=== PATIENT | female | born 1930 | race Caucasian/White ===

== ENCOUNTER 2017-05-27 10:52 | Emergency (ER) | payer MEDICARE, BC ==
[~2017-05-27] VITALS: Ht 157.5 cm; Wt 93.0 kg
[~2017-05-27 10:52] MED LIST: ASPIRIN EC325 MG PO; CALCIUM + VITA1 EACH PO; CENTRUM SILVER1 EAC1 PO; DORZOLAMIDE-TIM10 ML OP; FLEXERIL5 MG PO; INDOMETHACIN25 MG PO; KAON-CL 1010 MEQ PO; LASIX40 MG PO; LIPITOR20 MG PO; METOPROLOL SUCC50 MG PO; NITROGLYCERIN0.4 MG SL; NORCO 5-325 TA1 EACH PO; PREDNISONE5 MG PO; PRILOSEC20 MG PO; TYLENOL325 MG PO; XALATAN2.5 ML OU; XARELTO20 MG PO
== END 2017-05-27 11:27 | disposition home or self-care (01) ==
LOC: ED 10:52
DX: M79.605 Pain in left leg (principal); Z00.8 Encounter for other general examination

== ENCOUNTER 2017-07-23 12:41 | Emergency (ER) | payer MEDICARE, BC ==
[~2017-07-23] VITALS: Ht 157.5 cm; Wt 93.0 kg
[2017-07-23] MEDS ORDERED: PREDNISONE10 MG PO (15:12)
[2017-07-23] MEDS ORDERED: ZITHROMAX250 MG PO (15:12)
[2017-07-23] MEDS ORDERED: DIFLUCAN150 MG PO (15:17)
--- NOTE | 2017-07-23 22:26 | EKG ---
[facility] [address] [facility] [place] [address] Signed Normal sinus rhythm Septal infarct , age undetermined Abnormal ECG No previous ECGs available Confirmed by KIARA PANDEY MD ([id number]) on 07/23/2017 10:26:16 PM Electronically Signed By: KIARA PANDEY MD 07/23/17 2226 PATIENT NAME: PATRICIA JUNG Electrocardiogram DATE OF : 30 PHYSICIAN: KIARA PANDEY MD REPORT #: [id number] REPORT IS CONFIDENTIAL AND NOT TO BE RELEASED WITHOUT AUTHORIZATION
== END 2017-07-23 15:26 | disposition home or self-care (01) ==
LOC: ED 12:41
DX: J44.1 Chronic obstructive pulmonary disease with (acute) exacerbation (principal); I48.91 Unspecified atrial fibrillation; I11.0 Hypertensive heart disease with heart failure; I50.9 Heart failure, unspecified; E78.5 Hyperlipidemia, unspecified; K21.9 Gastro-esophageal reflux disease without esophagitis; Z88.2 Allergy status to sulfonamides; Z88.5 Allergy status to narcotic agent; Z79.899 Other long term (current) drug therapy; Z79.52 Long term (current) use of systemic steroids
CPT/HCPCS: 71020; 80053; 83880; 84484; 85025; 93005; 93010; 94640; 99283; J7512

== ENCOUNTER 2017-09-20 12:29 | Inpatient (IN) | payer MEDICARE, BC ==
[~2017-09-20] VITALS: Ht 157.5 cm; Wt 90.3 kg
[~2017-09-20 12:29] MED LIST changes: -CENTRUM SILVER1 EAC1 PO; +CENTRUM SILVER1 EAC3 PO; +DIFLUCAN150 MG PO; +PREDNISONE10 MG PO; +ZITHROMAX250 MG PO
[2017-09-20] MEDS ORDERED: POTASSIUM CHLO10 MEQ PO (12:50)
[2017-09-20] MEDS ORDERED: VENTOLIN HFA18 GM INH (17:09)
[2017-09-20] MEDS ORDERED: ALBUTEROL2.5 MG/3 M INH (17:11)
[2017-09-20] MEDS ORDERED: METOPROLOL SUC100 MG PO (17:13)
[2017-09-20] MEDS ORDERED: AZITHROMYCIN500 MG PO (18:17)
--- NOTE | 2017-09-20 18:20 | NUR ---
MED REC COMPLETE
--- NOTE | 2017-09-20 18:58 | NUR ---
PATIENT ADMIT FROM ED. TO FLOOR VIA STRETCHER. PATIENT TRANSFER TO HOSPITAL BED WITH NO DIFFICULTY. ADMISSION ASSESSMENT DONE. EXPIRATORY WHEEZE AUSCULTATED THROUGHOUT. PATIENT IS 1L O2 VIA NC. REPORTS SOB ON EXERTION. 1 PERSON [place] TO [facility] SITE PATENT. SKIN INTACT. PATIENT IS A&O. TELE # 8 SR. PATIENT EDUCATED ABOUT HOW TO USE TO CALL LIGHT. ALL PERSONAL BELONGING AND CALL LIGHT IN REACH.
--- NOTE | 2017-09-20 19:05 | NUR ---
SHIFT REPORT RECEIVED AT BEDSIDE. PATIENT UP AT THE BEDSIDE. JUST FINISHED A NEB TREATMENT. O2 SAT 94% ON 1L. PATIENT DOES NOT APPEAR SOB. ENCOURAGED HER TO RELAX AND DEEP BREATHE. DAUGHTER IN ROOM. NO OTHER NEEDS AT THIS TIME.
--- NOTE | 2017-09-20 20:09 | NUR ---
PATIENT UP TO BSC. STEADY ON HER FEET, BUT INCREASING SOB WITH ACTIVITY. 2L NC AND 94% O2 SAT. LUNGS ARE CLEAR IN UPPER LOBES WITH EXPIRTORY WHEEZE IN THE BASES. ABD IS SOFT, AND NONTENDER. BOWEL SOUNDS ACTIVE. EDEMA NOTED IN BOTH LOWER EXTREMITIES, 2+ IN THE LEFT & 3+ IN THE RIGHT. PATIENT HAS SOME TINGLING IN HER TOES. THEY ARE RED AND SWOLLEN, PATIENT STATES THIS IS FROM [place]. PATIENT'S DAUGHTER IS AT THE BEDSIDE. PATIENT'S BP WAS LOWER THAN PREVIOUS FINDINGS. WILL CALL
--- NOTE | 2017-09-20 20:14 | NUR ---
HOSPITALIST CONTACTED TO REPORT SYSOLIC BP LESS THAN 100, PER THE CALL PARAMETERS. ORDERS TO HOLD EVENING DOSE OF METOPROLOL.
--- NOTE | 2017-09-20 20:20 | NUR ---
VITALS DONE AND ENTERED. MARCE BEARD DID A MANUAL B/P TO BE SURE IT WAS RIGHT.
--- NOTE | 2017-09-20 20:30 | NUR ---
PATIENT'S DAUGHTER IS LEAVING FOR THE NIGHT. [facility] REPORTS BEING COMFORTABLE. LUIS ARMANDO HAS BEEN DRINKING WATER FREQUENTLY. EDUCATED PATIENT ON PROPER FLUID BALANCE WITH HER DX OF HEART FAILURE. PATIENT DENIES SHE HAS BEEN DRINKING MUCH AT ALL. RN EDUCATED HER ABOUT THE I&O BOARD AND HER INTAKE FOR THE NIGHT. PATIENT AGREES TO TAKE SMALLER DRINKS.
--- NOTE | 2017-09-20 22:00 | NUR ---
DISCUSSED FLUID RESTRICTION AND DAILY WEIGHTS WITH HOSPITALIST. SHE ORDERED A 1500ML FLUID RESTRICTION AND DAILY STANDING WEIGHTS.
--- NOTE | 2017-09-20 23:30 | NUR ---
MEDS GIVEN PER ORDER. PATIENT IS RESTING IN THE RECLINER. SHE DID NOT AROUSE AT ALL WHILE THE RN WAS IN THE ROOM. RR 18. O2 SAT 97% ON 2L NC. CALL LIGHT IN REACH.
--- NOTE | 2017-09-20 23:55 | NUR ---
VITALS AND I&OS DONE CHARTED. HELPED HER TO THE BATHROOM AND BACK. BEDSIDE TABLE AND CALL LIGHT WITHIN REACH. PT NEEDS NOTHING MORE AT THIS TIME.
--- NOTE | 2017-09-21 01:30 | NUR ---
PATIENT RESTING IN RECLINER. DOES NOT AROUSE DURING THE CADET DECK. LUNGS SOUND CLEAR, BREATHING IS SHALLOW. DIMINISHED IN THE BASES. EDEMA NOTED IN LOWER EXTREMITIES. PATIENT'S OUTPUT HAS BEEN QS. CONTINUES TO BE SOB WHEN GETTING UP TO BSC. PATIENT IS TOLERATING 2L NC.
--- NOTE | 2017-09-21 01:40 | NUR ---
VITALS AND I&OS DONE AND CHARTED. HELPED PT TO THE BEDSIDE COMMODE AND BACK TO HER CHAIR. PT STATED SHE DID NOT WANT TO SLEEP IN HER BED. BEDSIDE TABLE AND CALL LIGHT IN REACH. PT NEEDS NOTHING MORE AT THIS TIME.
--- NOTE | 2017-09-21 03:45 | NUR ---
PATIENT RESTING IN RECLINER. EYES CLOSED. RR18. O2 SAT 95% ON 2L NC.
--- NOTE | 2017-09-21 05:15 | NUR ---
SOCIAL SERVICE MANAGER COMPLETED PATIENT'S VS. SHE REQUESTED RT BE CONTACTED. RT PROVIDED NEB TREATMENT.
--- NOTE | 2017-09-21 05:29 | NUR ---
PATIENT SLEPT SOUNDLY MOST OF THE NIGHT. CONTINUES TO BE SOB WITH ACTIVITY. ONLY UP TO BSC. 2L NC AND SCHEDULED NEBS. PATIENT HAS EXPIRTORY WHEEZES IN THE BASES AND CLEAR IN UPPER LOBES BILATERALLY. EDEMA NOTED IN LOWER ETREMITIES, 2+ ON LEFT AND 3+ ON RIGHT. PATIENT ON 1500ML FLUID RESTRICTION, THIS IS NEW TO THE PATIENT AND SHE REQUIRES FURTHER EDUCATION. DAILY WT.
--- NOTE | 2017-09-21 05:49 | NUR ---
PATIENT AWAKE THIS MORNING. STATES SHE WAS UP EVERY HOUR LAST NIGHT, BUT STILL GOOD A DECENT AMOUNT OF SLEEP. PATIENT EDUCATED ON FLUID RESTRICTION. UPDATED ON PLAN OF CARE. PATIENT DISAGREES THAT SHE REQUIRED A FLUID RESTRICTION OR THAT SHE IS FLUID OVERLOADED. PATIENT PROVIDED WITH MORE EDUCATION AND THIS RN WILL PASS ON CONCERNS TO THE DAYSHIFT RN.
--- NOTE | 2017-09-21 06:20 | NUR ---
MORNING MEDS GIVEN. MORE EDUCATION PROVIDED ABOUT FLUID BALANCE, COPD, CHF, AND MEDS GIVEN. PATIENT IS IN A GOOD MOOD AND PROVIDED HER BREAKFAST ORDER. SHE CONTINUES TO BE ON 2L NC, 95% O2 SAT. EXPIRTORY WHEEZE THROUGHOUT. PATIENT DENIES OTHER NEEDS.
--- NOTE | 2017-09-21 07:10 | EKG ---
[facility] [address] [facility] [place], [place] [address] Signed Normal sinus rhythm Left axis deviation Septal infarct (cited on or before 23-JUL-2017) Abnormal ECG When compared with ECG of 23-JUL-2017 14:10, Questionable change in initial forces of Septal leads Confirmed by BAUTISTA SOLORZANO MD ([id number]) on 09/21/2017 7:10:31 AM Electronically Signed By: BAUTISTA SOLORZANO MD 09/21/17 0710 PATIENT NAME: PATRICIA JUNG Electrocardiogram DATE OF : 30 PHYSICIAN: BAUTISTA SOLORZANO MD REPORT #: [id number] REPORT IS CONFIDENTIAL AND NOT TO BE RELEASED WITHOUT AUTHORIZATION
--- NOTE | 2017-09-21 07:45 | NUR ---
BEDSIDE REPORT RECEIVED FROM CHIRAG. PATIENT AWAKE SITTING IN THE CHAIR, REPORT NO PAIN, NO NAUSEA, NO SOB. PATIENT IS ON 2L OF O2 VIA NC. SAT 95% AND HR 86 PER PULSE OXYMETER. WARM BLANKET GIVEN. NO APPARENT DISTRESS NOTED.CALL LIGHT IN REACH.
--- NOTE | 2017-09-21 08:23 | NUR ---
MACHINE ATTENDANT LA NENA IN ROOM TO TALK TO PATIENT.
--- NOTE | 2017-09-21 09:15 | NUR ---
SHIFT ASSESSMENT DONE. PATIEN REPORTS NO PAIN. LUNGS COARSE THROUGHOUT EXCEPT RIGHT UPPER LOBE WITH EXPERATORY WHEEZE. IV SITE PATENT. SKIN INTACT. PATIENT DENIES SOB AT THIS TIME. CALL LIGHT IN REACH. PATIENT SITTING IN CHAIR EATING BREAKFAST.
--- NOTE | 2017-09-21 10:30 | NUR ---
TECH IN ROOM DOING ECHO.
--- NOTE | 2017-09-21 12:05 | NUR ---
PATIENT WAS UP AMBULATED WITH PHYSICAL THERAPIST FROM ROOM 109 TO ROOM 111. TOLERATED FAIRLY, DESATED ON THE OF . PATIENT RESTING IN THE CHAIR AT THIS TIME EATING LUNCH. FAMILY IN ROOM VISITING.
--- NOTE | 2017-09-21 13:18 | NUR ---
PATIENT WAS ASSISTED TO BATHROOM , THEN BACK TO THE CHAIR. DENIES PAIN, REPORTS MILD SOB, PATIENT IS ON 2L OF O2. RESTING IN THE CHAIR AT THIS TIME. PO LASIX ADMINISTERED. WILL CONTINUE TO MONITOR
--- NOTE | 2017-09-21 15:14 | NUR ---
PT IS UP TO THE BATHROOM AND IS NOW BACK IN THE CHAIR. PT STATES SHE HAS NO OTHER NEEDS AT THIS TIME. CALL LIGHT IN REACH.
--- NOTE | 2017-09-21 15:54 | NUR ---
PATIENT CALLED AND REPORTED CHEST PRESSURE, HER FACE IS FLUSHES. DENIES ANY SOB OR PALPITATION. PATIENT HEART RATE IS 76 AND O2 SAT [address] DINAH SOLORZANO WAS NOTIFIED AND CAME IN TO ROOM TO ASSESS PATIENT. MD DISCUSS PATIENT ECHO TEST RESULT WITH PATIENT AND FAMILY. PATIENT RESTING IN THE CHAIR AT THIS TIME.
--- NOTE | 2017-09-21 18:38 | NUR ---
PATIENT HAD DONE WELL TODAY. WALKED FROM ROOM 109 TO ROOM 111 WITH 2L OF O2. TELE # 5 SR. EXPERATORY WHEEZE STILL AUSCULTATED THROUGHOUT THE LUNGS FIELD BUT IMPROVED AFTER NEB TX. IV SOLU-MEDROL. PO LASIX. PATIENT IS SBA TO BATHROOM AND VANESA WELL. SOB ON EXERTION.
--- NOTE | 2017-09-21 19:10 | NUR ---
SHIFT REPORT RECIEVED. PATIENT IN RECLINER READING THE PAPER. STATES SHE HAD A BETTER DAY TODAY. DENIES SHORTNESS OF BREATH. NO NEEDS AT THIS TIME. CALL LIGHT IN REACH. 2L NC IN USE. O2 SAT 95%.
--- NOTE | 2017-09-21 20:00 | NUR ---
PATIENT HAS FAMILY VISITING HER. DEINES ANY NEEDS AT THIS TIME. ZHENG NOVEMBER PROVIDED FRESH WATER.
--- NOTE | 2017-09-21 21:30 | NUR ---
EVENING MEDS GIVEN PER ORDER. PATIENT IS AAOX3. SITTING UP IN THE RECLINER. JUST FINIHSED A BREATHING TREATMENT WITH RT. PATIENT DENIES SOB. O2 SAT 97% ON 2L NC. PATIENT'S LUNGS HAVE A SLIGHTY EXPIRTORY WHEEZE THROUGHOUT. OCCATIONALY DRY COUGH. ABD IS ROUND, SOFT, AND NONTENDER. BOWEL SOUNDS ACTIVE. NYSTATIN POWER APPLIED UNDER PATIENT'S PANIS ON THE RIGHT AND LEFT SIDE. LEFT SIDE IS VERY RED AND PAINFUL, RIGHT SIDE IS ONLY SLIGHTLY RED AND NONPAINFUL. PATIENT IS 2+ EDEMA IN THE RIGHT LOWER EXTREMITY AND 1+ IN THE LEFT LOWER EXTREMITY. PATIENT HAS BEEN ELEVATING THEM WHILE SHE IS IN THE RECLINER. PATIENT ASSISTED UP TO THE BATHROOM AND THEN BACK TO BED. SHE IS STEADY ON HER FEET BUT BECOMES SOB WITH ACTIVTY. O2 SAT 90% WHEN RETURNED TO RECLINER. PATIENT HAS LONG NC TUBING TO WEAR O2 EVEN INTO THE BATHROOM. PATIENT DENIES OTHER NEEDS AT THIS TIME.
--- NOTE | 2017-09-21 21:58 | NUR ---
Charge nurse rounds - Pt up in chair, no c/o pain O2 inplace, pt visiting.
--- NOTE | 2017-09-21 22:44 | NUR ---
MARBLEIZING MACHINE TENDER ASSISTED PATIENT UP TO THE BATHROOM AND BACK TO THE RECLINER.
--- NOTE | 2017-09-22 00:50 | NUR ---
PATIENT RESTING IN RECLINER. O2 SAT 96% ON 2L NC. RR 18. CALL LIGHT IN REACH.
--- NOTE | 2017-09-22 01:23 | NUR ---
VITALS AND I&OS DONE AND CHARTED. FRESH WATER GIVEN. BEDSIDE TABLE AND CALL LIGHT WITHIN REACH. PT VISITING WITH FAMILY WHEN I LEFT THE ROOM.
--- NOTE | 2017-09-22 04:37 | NUR ---
PATIENT RESTED WELL THROUGHOUT THE NIGHT. AAOX3. 2L NC. SCHEDULED NEBS. SBA TO BATHROOM, SOB WITH ACTIVITY. CONTINUOUS PULSE OX. LUNG SOUNDS HAVE IMPROVED. PATIENT HAS SMALL BM. 1500 ML FLUID RESTRICTION. DAILY WT.
--- NOTE | 2017-09-22 06:31 | NUR ---
morning vs done. meds given per order. patienty resting in recliner. no needs at this time.
--- NOTE | 2017-09-22 07:09 | NUR ---
GOT DAILY WEIGHT
--- NOTE | 2017-09-22 07:25 | NUR ---
REPORT RECEIVED FROM MARCE BEARD. PT IS AWAKE AND UP IN CHAIR. CALL LIGHT IN REACH. BOARD CHANGED. PT DENIES OTHER NEEDS AT THIS TIME.
--- NOTE | 2017-09-22 08:24 | NUR ---
RT IN WITH PT. NEB ADMINISTERED. PT SITTING UP IN CHAIR EATING BREAKFAST. DENIES PAIN AND OTHER NEEDS AT THIS TIME.
--- NOTE | 2017-09-22 09:02 | NUR ---
PT UP TO BATHROOM. SBA. PT WALKS WELL, BUT SOB MAKES PT NERVOUS. CLEARED BREAKFAST TRAY. PT DENIES ANY PAIN, OR OTHER NEEDS AT THIS TIME. UP IN CHAIR WITH FEET UP. CALL LIGHT IN REACH.
--- NOTE | 2017-09-22 10:30 | NUR ---
PT QUALIFIED FOR HOME O2 WITH RT. DR SOLORZANO IN TO SEE PT. PT UP IN CHAIR. COUGHING PRODUCTIVELY. DAUGHTER IN ROOM VISITING WITH PATIENT.
--- NOTE | 2017-09-22 11:18 | NUR ---
PATIENT REFUSED SHOWER TODAY.
--- NOTE | 2017-09-22 11:42 | NUR ---
PT UP TO BATHROOM. REPORTS NO SOB WITH 2L O2. BACK TO CHAIR WITH FEET UP. DAUGHTER IN ROOM. DENIES OTHER NEEDS AT THIS TIME.
--- NOTE | 2017-09-22 12:46 | NUR ---
PT'S WATER CUP FILLED. UP IN CHAIR WITH FEET UP. PT IS PLEASANT AND DENIES ANY NEEDS AT THIS TIME. HAS VISITOR.
--- NOTE | 2017-09-22 13:49 | NUR ---
PT UP TO BATHROOM THEN BACK TO CHAIR. PT IS COUGHING PRODUCTIVELY. PT HAS FAMILY IN ROOM. DENIES ANY NEEDS AT THIS TIME.
--- NOTE | 2017-09-22 15:34 | NUR ---
PT IS SITTING UP IN CHAIR WITH LEGS ELEVATED. APPEARS COMFORTABLE. VISITING WITH FAMILY.
--- NOTE | 2017-09-22 17:22 | NUR ---
PT IS SITTING UP IN CHAIR WITH LEGS ELEVATED EATING DINNER. REPORTS MINOR HEADACHE, BUT DOESN'T WANT ANY COMFORT MEASURES. TELE BATTERY CHANGED. DENIES OTHER NEEDS. VISITING WITH FAMILY.
--- NOTE | 2017-09-22 18:04 | NUR ---
PT QUALIFIED FOR HOME O2 TODAY. MAINTAINS 93-96% WITH 2L. SBA. SL IN RIGHT FOREARM. EDEMA IN BLE. BASELINE EXPIRATORY WHEEZES. TELE DC'D THIS EVENING. NYSTATIN APPLIED UNDER PANUS. NO REDNESS ON RIGHT SIDE, SMALL RED AREA ON LEFT SIDE. MUTLIPLE BM'S TODAY. NO PAIN OR SOB. PLAN IS TO DC TO HOME TOMORROW.
--- NOTE | 2017-09-22 19:10 | NUR ---
SHIFT REPORT RECIEVED AT BEDSIDE. PATIENT RESTING IN RECLINER. 2L NC, O2 SAT 95%. NO NEEDS AT THIS TIME. STATED SHE HAD A GOOD DAY. CALL LIGHT IN REACH.
--- NOTE | 2017-09-22 21:00 | NUR ---
EVENING MEDS GIVEN PER ORDER. PATIENT RESTING IN RECLINER. O2 SAT 96% ON 2L NC. LUNGS ARE CLEAR IN UPPER LOBES AND COARSE IN THE BASES. OCCATIONAL PRODUCTIVE COUGH. ABD IS SOFT AND NONTEDER. APPETITE HAS IMPROVED. EDEMA NOTED IN LOWER EXTREMITIES BILATERALLY, MORE SO IN THE LEFT LEG. SKIN IS GROSSLY INTACT. PATIENT DENIES ANY NEEDS.
--- NOTE | 2017-09-22 23:15 | NUR ---
PATIENT RESTING IN BED. EYES CLOSED. RR 18. O2 SAT 95% ON 2L NC.
--- NOTE | 2017-09-23 00:30 | NUR ---
PATIENT PRESSED CALL LIGHT BY ACCIDENT AND ZHENG JOSEPH WENT INTO TALK WITH PATIENT. SHE DENIES ANY NEEDS.
--- NOTE | 2017-09-23 00:37 | NUR ---
PATIENT CALLED TO USE THE BATHROOM AND BACK TO CHAIR 1 PERSON ASSIST. CALL BUTTON WITHIN REACH.
--- NOTE | 2017-09-23 02:00 | NUR ---
PATIENT SLEEPING SOUNDLY. RR 18. O2 SAT 96%. BREATHING IS NONLABORED. CALL LIGHT IN REACH.
--- NOTE | 2017-09-23 03:55 | NUR ---
PATIENT RESTING IN RECLINER. APPEARS TO BE SLEEPING. RR19. O2 SAT 95% ON 2L.
--- NOTE | 2017-09-23 04:09 | NUR ---
ASSISTED PATIENT TO THE BATHROOM. WARM BLANKET PROVIDED. BACK TO RECLINER. NO OTHER NEEDS.
--- NOTE | 2017-09-23 05:52 | NUR ---
PATIENT SLEPT IN RECLINER THROUGHOUT THE NIGHT. SHE WAS UP TO THE BATHROOM A FEW TIMES AND CALLED APPROPRIATELY. SBA TO BATHROOM. SOB WITH ACTIVITY. OCCATIONAL COUGH. 2L NC. PULSE OX. 1500ML FLUID RESTRICTION. IV SL.
--- NOTE | 2017-09-23 06:05 | NUR ---
MORNING MEDS GIVEN. IV IS SENSITIVE TO FLUSH BUT DRAWS BACK BLOOD AND APPEARS WNL. PATIENT UP TO THE BATHROOM AND FOR HER DAILY WT. FRESH WATER PROVIDED. PATIENT IN RECLINER. DENIES OTHER NEEDS.
--- NOTE | 2017-09-23 07:20 | NUR ---
REPORT RECEIVED FROM MARCE BEARD. PT SITTING UP IN CHAIR. PLAN TO DC TODAY. DENIES OTHER NEEDS AT THIS TIME.
--- NOTE | 2017-09-23 07:45 | NUR ---
AM MEDS ADMINISTERED PER ORDER. PT IS SITTING UP IN CHAIR. HAS PAIN 5/10 IN HEAD, BUT STATES THAT IT IS OK. DENIED ANY COMFORT MEASURES. RT IN TO ADMINISTER SCHEDULED NEB. PT REPORTS SOME APPREHENSION ABOUT GOING HOME TODAY DUE TO LIVING INDEPENDENTLY. PROVIDED EDUCATION AND REASSURANCE.
--- NOTE | 2017-09-23 07:52 | NUR ---
PATIENT UP, WAITING FOR BREAKFAST, AM CARE DONE.
--- NOTE | 2017-09-23 10:03 | NUR ---
PT SITTING UP IN CHAIR WITH LEGS ELEVATED. DAUGHTER IN ROOM VISITING WITH PT. PT APPEARS COMFORTABLE. PT HAS BEEN UP TO WALK WITH PHYSICAL THERAPY X1. DR PANDEY IN TO SEE PT AND DISCUSS DC PLAN.
--- NOTE | 2017-09-23 10:45 | NUR ---
PT UP TO BATHROOM. USING FWW PER PHYSICAL THERAPY IN CASE OF SOB. PT HAS STEADY GAIT. DENIES OTHER NEEDS AT THIS TIME. PLAN TO CONTINUE ACTIVITY AD PRINCE. REASSESS PROGRESS AND DC TOMORROW.
--- NOTE | 2017-09-23 12:12 | NUR ---
PT SITTING UP IN CHAIR EATING LUNCH. VISITING WITH FAMILY. DENIES SOB AND HEADACHE HAS RESOLVED. STILL HAS OCCASSIONAL COUGH. NO OTHER NEEDS AT THIS TIME.
--- NOTE | 2017-09-23 13:55 | NUR ---
PT SITTING UP IN CHAIR WITH LEGS UP. HAS BEEN CALLING APPROPRIATELY AND UP TO BATHROOM REGULARLY. DENIES SOB OR DIZZINESS. VISITING WITH FAMILY IN ROOM. DENIES OTHER NEEDS AT THIS TIME.
--- NOTE | 2017-09-23 14:25 | NUR ---
SOLUMEDROL ADMINISTERED. PT TOLERATED WELL. MINOR DISCOMFORT. IV FLAVIA BLOOD AND FLUSHED WELL. PT UP TO BATHROOM, SBA. TOLERATED WELL. DINNER ORDERED. EDUCATION ON CARDIAC DIET PROVIDED. PT HAS LEGS ELEVATED. DENIES OTHER NEEDS AT THIS TIME.
--- NOTE | 2017-09-23 15:13 | NUR ---
PT UP TO WALK IN HALLWAY WITH MARCE CHIU. TOLERATED WELL ON 2L O2. PT BACK TO CHAIR WITH LEGS ELEVATED. VISITORS IN ROOM.
--- NOTE | 2017-09-23 18:28 | NUR ---
PT HAD SCHEDULED NEBS. WORKED WITH PHYSICAL THERAPY X1. IS TO USE FWW IN HALLWAY IN CASE OF SOB. UP IN HALLWAY X1 LAP. TOLERATED WELL WITH 2L NC. IS SBA IN ROOM. 2L NC. FLUID RESTRICTION REMOVED. CARDIAC DIET. REINFORCE EDUCATION. PT UP IN CHAIR MOST OF DAY WITH FEET ELEVATED. BASELINE EXW. WILL NEED TO REQUALIFY FOR HOME 02 TOMORROW BEFORE DC TO HOME. LIVES INDEPENDENTLY. WILL TRANSITION TO [place] TOMORROW. NEEDS REASSURANCE AND REINFORCEMENT OF EDUCATION/DC PLAN.
--- NOTE | 2017-09-23 19:15 | NUR ---
SHIFT REPORT RECIEVED. PATIENT RESTING IN RECLINER. DENIES NEEDS AT THIS TIME. 2L NC IN USE. O2 SAT 96%. CALL LIGHT IN REACH.
[2017-09-23] MEDS ORDERED: PREDNISONE5 MG PO (20:17)
[2017-09-23] MEDS ORDERED: PREDNISONE20 MG PO (20:18)
--- NOTE | 2017-09-23 21:15 | NUR ---
EVENING MEDS GIVEN PER ORDER. PATIENT UP TO THE BATHROOM. APPEARS STEADY ON HER FEET. SLIGHTLY SOB WHEN RETURNING TO THE RECLINER. LUNGS ARE COARSE IN THE BASES, CLEAR IN THE UPPER LOBES BILATERALLY. 2L NC, O2 SAT 95%. EDEMA NOTED IN LOWER EXTREMITIES, 2+ IN THE RIGHT AND +1 IN THE LEFT. NO PAIN. APPETITE IMPROVING. DENIES ANY NEEDS AT THIS TIME. CALL LIGHT IN REACH.
--- NOTE | 2017-09-23 23:30 | NUR ---
PATIENT RESTING IN THE RECLINER. APPEARS TO BE SLEEPING. RR16. O2 SAT 96% ON 2L NC.
--- NOTE | 2017-09-24 00:16 | NUR ---
PATIENT UP TO THE BATHROOM. ZHENG JOSEPH ASSISTED PATIENT. PATIENT REQUEST TO HAVE HER NEB TREATMENT. RT CONTACTED.
--- NOTE | 2017-09-24 02:24 | NUR ---
PATIENT APPEARS TO BE SLEEPING IN RECLINER. RR 17. O2 SAT 98%, 2L NC.
--- NOTE | 2017-09-24 03:32 | NUR ---
PATIENT CALLED TO USE THE BATHROOM. STANDBY ASSIST. PATIENT IS BACK IN CHAIR. CALL BUTTON WITHIN [facility]. CALLED RT FOR BREATHING TREATMENT PER PATIENT'S REQUEST.
--- NOTE | 2017-09-24 04:52 | NUR ---
PATIENT SLEPT WELL THROUGHOUT THE NIGHT. SBA TO THE BATHROOM. OUTPUT QS. NO PAIN. OCCATIONAL LOOSE COUGH. COARSE LUNG SOUNDS IN THE BASES, CLEAR IN THE UPPER LOBES BILATERALLY. EDEMA IN THE LOWER EXTREMITIES. 2L NC. NEEDS TO REQUALIFY FOR HOME O2 PRIOR TO DC.
--- NOTE | 2017-09-24 05:10 | NUR ---
PATIENT RESTING IN RECLINER. APPEARS TO BE SLEEPING. O2 SAT 96% ON 2L.
--- NOTE | 2017-09-24 09:02 | NUR ---
MORNING ASSESSMENT DONE. PT REPORTS "FEELING BETTER" TODAY. PT UP TO RESTROOM AND HAS A BM. 2L NC O2 ON. PT DEMONSTATES UNDERSTANDING OF O2 USE. PT BACK TO CHAIR WITHOUT INCIDENT. MD AT BEDSIDE FOR ROUNDS. PT VERBALIZES UNDERSTANDING OF PLAN OF CARE AND DISCHARGE TODAY. PT RESTING IN CHAIR. CALL LIGHT WITHIN REACH.
--- NOTE | 2017-09-24 09:15 | NUR ---
SPOKE WITH PATIENT AND DAUGHTER PREETHI IN ROOM. PATIENT IS AWARE SHE WILL PROBABLY NEED OXYGEN AT HOME. SHE ALSO IS AWARE DR PANDEY HAS WRITTEN FOR A WALKER. SHE IS STILL ADAMANT TO GO HOME AT DISCHARGE. STATES HER SON WILL BE STAYING WITH HER FOR A WEEK. HER DAUGHTER PREETHI STATES THEY WILL MAKE SURE SHE HAS SOMEONE AROUND. PATIENT STATES SHE HAS AN APPOINTMENT WITH DR GILBERT ON SUNDAY AND HAS A RIDE. SHE STATES SHE SPOKE WITH OUR CHW AND SHE IS GOING TO HELP HER FIND A NEW PCP FOR WHEN DR GILBERT RETIRES. BOTH STATE NO FURTHER QUESTIONS AND STATE UNDERSTANDING THAT [facility] THERAPY NEEDS TO DO AN OXYGEN QUALIFIER TEST THIS MORNING AND THAT I WILL SEND PAPERWORK TO [facility] FOR BOTH THE WALKER AND THE OXYGEN SET-UP.
--- NOTE | 2017-09-24 09:57 | NUR ---
PATIENT SITTING IN CHAIR VISITING WITH DAUGHTER. VITALS DONE, FRESH COFFEE GIVEN TO DAUGHTER. CALL LIGHT IN REACH, NO OTHER NEEDS AT THIS TIME.
--- NOTE | 2017-09-24 10:32 | NUR ---
PATIENT UP TO VOID, TOLERATED ACTIVITY WELL.
--- NOTE | 2017-09-24 10:47 | NUR ---
FAXED CLINICALS, RX FOR SEATED WALKER, RX FOR OXYGEN, AND OXYGEN QUALIFIER TO [facility]. FAX CONFIRMATION RECEIVED. CALLED [facility] AND SPOKE WITH SEVERO WHO WILL LOOK THROUGH PACKET.
--- NOTE | 2017-09-24 11:05 | NUR ---
Rec'd CHW referral at the end of the day Sunday09/21/17. made visit with patient who was looking for assisitance for a new PCP as her currently one Dr. Schwarz will be retiring this coming January. Let patient and family know I will research our local [place] area and let them know who is accepting new patient's with primary insurance as Medicare. Provided patient with current list of providers accepting new patient's and encourage them to not wait till the last minute as the [place] going [place] get tougher when Dr. Schwarz does retire. Once the patient decides who she would like as her new PCP I will get her an ARNEL so the choosen provider can review her medical records and accept/deny patient.
--- NOTE | 2017-09-24 11:17 | NUR ---
FOCUSED ASSESSMENT DONE. PT PLAYING CARDS WITH FAMILY. PT REPORTS FEELING "READY TO GO HOME ONCE MY SON ARRIVES." PT WEARING O2, 2L NC. MEDICATIONS GIVEN ORDEDED (SEE MAR). DISCHARGE INSTRUCTIONS REVIEWED WITH PT AND FAMILY. PT AND FAMILY VERBALIZE UNDERSTANDING OF INSTRUCTIONS AND STATE THEIR QUESTIONS HAVE BEEN ANSWERED. PT RESUMES CARD GAMES. NO REQUESTS OR COMPLAINTS AT THIS TIME. CALL LIGHT WITHIN REACH. RT AT BEDSIDE FOR NEB TREATMENT.
--- NOTE | 2017-09-24 12:00 | NUR ---
PATIENT UP TO BATHROOM WITH ONE PERSON ASSIT.
--- NOTE | 2017-09-24 14:16 | NUR ---
SPOKE WITH [facility]. THEY STATE THEY JUST SUBMITTED PAPERWORK TO INSURANCE. WILL CALL LATER WITH DETAILS.
--- NOTE | 2017-09-24 14:17 | NUR ---
SPOKE WITH KENN AT [facility]. SHE STATED THE RECONNAISSANCE MAN WAS BRINGING PATIENTS WALKER HERE, AND ONCE PATIENT LEAVES, TO CALL THEM AND HE WILL GO OUT TO PATIENTS HOME TO DELIVER OXYGEN SET-UP. UPDATED STAFF.
--- NOTE | 2017-09-24 14:20 | NUR ---
PATIENT HAS OXYGEN TO BE DELIVERED AT HOME AT 1530 OR SO.
[2017-09-25] MEDS ORDERED: NORCO 5-325 TA1 EACH PO (10:55)
--- NOTE | 2017-09-26 15:12 | NUR ---
09-26-17 Phone call to patient due to ED visit last night. 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 Amanda stated she does have a follow up appointment with Dr. Schwarz tomorrow 09/27/17. PCP notified of ED visit and Utilization letter sent to patient.
== END 2017-09-24 14:25 | disposition home or self-care (01) | DRG 190 ==
LOC: ED 12:29 → MS 16:46
PROVIDERS: ADMIT Internal Medicine
DX: J44.1 Chronic obstructive pulmonary disease with (acute) exacerbation (principal); J96.01 Acute respiratory failure with hypoxia; I48.0 Paroxysmal atrial fibrillation; Z77.22 Contact with and (suspected) exposure to environmental tobacco smoke (acute) (chronic); I11.0 Hypertensive heart disease with heart failure; I50.9 Heart failure, unspecified; Z53.29 Procedure and treatment not carried out because of patient's decision for other reasons
CPT/HCPCS: 36415; 71046; 80048; 80053; 81001; 83735; 83880; 84484; 85025; 93005; 93010; 93306; 94640; 94761; 94762; 97110; 97116; 97162; 97530; J2920; J7512

== ENCOUNTER 2017-09-25 07:42 | Emergency (ER) | payer MEDICARE, BC ==
[~2017-09-25] VITALS: Ht 157.5 cm; Wt 90.3 kg
[~2017-09-25 07:42] MED LIST changes: +ALBUTEROL2.5 MG/3 M INH; +AZITHROMYCIN500 MG PO; +METOPROLOL SUC100 MG PO; +POTASSIUM CHLO10 MEQ PO; +PREDNISONE20 MG PO; +VENTOLIN HFA18 GM INH
[2017-09-25] MEDS ORDERED: NORCO 5-325 TA1 EACH PO (10:55)
--- NOTE | 2017-09-26 22:42 | EKG ---
[facility] [address] [facility] [place] [address] Signed Atrial fibrillation Left axis deviation Septal infarct (cited on or before 23-JUL-2017) Abnormal ECG When compared with ECG of 20-SEP-2017 13:00, Atrial fibrillation has replaced Sinus rhythm Confirmed by KIARA PANDEY MD ([id number]) on 09/26/2017 10:41:49 PM Electronically Signed By: KIARA PANDEY MD 09/26/17 2242 PATIENT NAME: PATRICIA JUNG Electrocardiogram DATE OF : 30 PHYSICIAN: KIARA PANDEY MD REPORT #: [id number] REPORT IS CONFIDENTIAL AND NOT TO BE RELEASED WITHOUT AUTHORIZATION
== END 2017-09-25 11:42 | disposition home or self-care (01) ==
LOC: ED 07:42
DX: K85.90 Acute pancreatitis without necrosis or infection, unspecified (principal); I11.0 Hypertensive heart disease with heart failure; I50.9 Heart failure, unspecified; J44.9 Chronic obstructive pulmonary disease, unspecified; Z88.2 Allergy status to sulfonamides; Z88.5 Allergy status to narcotic agent; Z79.899 Other long term (current) drug therapy
CPT/HCPCS: 71045; 74160; 80053; 83690; 84484; 85025; 85610; 85730; 93005; 93010; 96374; 96375; 99284; J2270; J2405; J7120; Q9967

== ENCOUNTER 2019-08-05 02:03 | Emergency (ER) | payer MEDICARE, BC ==
[~2019-08-05] VITALS: Ht 157.5 cm; Wt 90.3 kg
--- OUTSIDE RECORDS SUMMARY | ~2019-08-05 | XMS | Encounter Summary ---
Demographics + + + | Address | [address] | | | [place] [address] | + + + | Home Phone | | + + + | Preferred Language | Unknown | + + + | Marital Status | Unknown | + + + | Moravian Affiliation | Unknown | + + + | Race | Unknown | + + + | Ethnic Group | Unknown | + + + Author + + + | Author | [facility] | | | and [place]ana | + + + | Organization | [facility] | | | and Morganana | + + + | Address | Unknown | + + + | Phone | Unavailable | + + + Support + + + + + | Name | Relationship | Address | Phone | + + + + + | Lobito Romero | LESA | [address] | | | | | [place], [place] | | | | | [address] | | + + + + + | Monie Conrad | ECON | Unknown | | | [place] | | | | + + + + + | Peggy Devi | LESA | Unknown | | + + + + + Care Team Providers + +------+ + | Care Cattyman Name | Role | Phone | + [...] Provider Unknown | | | | | [facility] [place] | [phone] | | | | | [address] | | | | | | [phone] | | | +--------+ + + + [...] Description | +--------+---------+ + + + | 12/02/ | Office | Cardiology | Monserrat Renner, | | | 2019 | Visit | | MD Bandar ALMODOVAR | | | | | | [place] | | | | | | [address] | | | | | | | | +--------+---------+ + + + documented as of this encounter Visit Diagnoses Not on filedocumented in this encounter"
--- OUTSIDE RECORDS SUMMARY | ~2019-08-05 | XMS | Encounter Summary ---
Demographics + + + | Address | [address] | | | [place] [address] | + + + | Home Phone | | + + + | Preferred Language | Unknown | + + + | Marital Status | Unknown | + + + | Restoration Affiliation | Unknown | + + + | Race | Unknown | + + + | Ethnic Group | Unknown | + + + Author + + + | Author | [facility] | | | and [place] | + + + | Organization | [facility] | | | and [place]ana | + + + | Address | Unknown | + + + | Phone | Unavailable | + + + Support + + + + + | Name | Relationship | Address | Phone | + + + + + | Lobito Romero | LESA | [address] | | | | | [place], [place] | | | | | [address] | | + + + + + | Monie Conrad | ECON | Unknown | | | [place] | | | | + + + + + | Peggy Devi | LESA | Unknown | | + + + + + Care Team Providers + +------+ + | Care Golf Course Laborer Name | Role | Phone | + [...] | | | | [address] | [place], [place] | | | | | [place], [place] | [address] | | | | | [address] | | | | | | [phone] | | | +--------+ + + + [...] | | | | | [place] | | | | | | [address] | | | | | | | [...] | maxP.54 mmHg TR Vmax: 2.57 m/s Svp Digital [employer]: | | | Authenticated by: Monserrat [facility] Report Date/Time: 09-21-2017 | | | 13:4:10 | | + + + + + | Procedure Note | + + | Harlan Wallace Conversion - 03/27/2019 3:56 PM PDT Patient Name: Tin Romero of | | : 1930 Performing Physician: Monserrat | | Prudencered wing INDICATIONS------ | | -----CHF, A-fib, SOB, Edema [...] cmLVIDd: 4.83 cmLVPWd: 0.88 cmLVOT Area: 3.37 [id number] Diam: 2.07 cm%FS: 29.10 | | %EF(Teich): [...] (A-L): 15.14 ml/m2LAAs A2C: | | 12.79 [id number] A-L A2C: 25.65 mlLALs A2C: 5.41 cmLAAs A4C: 14.08 pd6CKSIO A-L A4C: | | 32.16 mlLALs A4C: 5.23 cmRAAs: 18.88 pg0BXQNV A-L: 62.79 mlRAESV MOD: 59.55 | | mlRALs: 4.82 cmTAPSE: 2.35 cmAV maxP.72 mmHgAV meanP.16 mmHgAV Vmax: | | 1.91 m/Julius Vmean: 1.31 m/Julius VTI: 40.90 cmAVA Vmax: 1.85 cm2AVA (VTI): 1.85 | | uv6AJDZ Vmax: 0.00 cm2/m2AVAI (VTI): 0.00 cm2/m2LVOT maxP.43 mmHgLVOT meanPG: | | 2.50 mmHgLVSI Dopp: 39.26 ml/m2LVSV Dopp: 75.78 mlLVOT Vmax: 1.05 m/sLVOT Vmean: | | 0.74 m/sLVOT VTI: 22.43 cmMV A Jayden: 1.04 m/sMV DecT: 271.59 msMV E Jayden: 0.86 | | m/sMV E/A Ratio: 0.82MV PHT: 78.76 msMVA By PHT: 2.79 os1Nhhadj e': 0.05 | | m/sSeptal E/e': 14.66Lateral e': 0.04 m/sLateral E/e': 17.85RAP: 5 mmHgRVSP: | | 31.54 mmHgTR maxP.54 mmHgTR Vmax: 2.57 m/s Svp Digital Ad Sales:Authenticated by: | | Monserrat [facility] Date/Time: 09-21-2017 13:4:10 IMPRESSION: 1. [...] |TR Vmax: 2.57 m/s | | | |Svp Digital [employer]: | |Authenticated by: Liseleatha García | |Report [...]
--- OUTSIDE RECORDS SUMMARY | ~2019-08-05 | XMS | Encounter Summary ---
Demographics + + + | Address | [address] | | | [place] [address] | + + + | Home Phone | | + + + | Preferred Language | Unknown | + + + | Marital Status | Unknown | + + + | Pentecostalism Affiliation | Unknown | + + + | Race | Unknown | + + + | Ethnic Group | Unknown | + + + Author + + + | Author | [facility] | | | and [place] | + + + | Organization | [facility] | | | and [place] | + + + | Address | Unknown | + + + | Phone | Unavailable | + + + Support + + + + + | Name | Relationship | Address | Phone | + + + + + | Lobito Romero | LESA | [address] | | | | | [place], [place] | | | | | [address] | | + + + + + | Monie Conrad | ECON | Unknown | | | [place] | | | | + + + + + | Peggy Devi | LESA | Unknown | | + + + + + Care Team Providers + +------+ + | Care Buffer Operator Name | Role | Phone | + [...] + + | 04/09/ | Office | [facility] | Monserrat Perez, | Chronic diastolic | | 2019 | Visit | CARDIOLOGY DEON | MD Bandar ALMODOVAR | heart failure (HCC) | | | | [address] | [place], [place] | (Primary Dx); | | | | [place] [address] | [id number] | Essential | | | | [place] | | hypertension; | | | | [address] | | Paroxysmal atrial | | | | [phone] | | fibrillation (HCC) | +--------+---------+ + [...] No change in medication. Was evaluated in [facility] in November 2018 for shortness of breath, [...] pickled vegetables Previously was hospitalized in [facility] in September 2017 secondary to exacerbat [...] change from previous EKG. 09/20/2017 From [facility] showed normal sinus rhythm, left axis [...] 12/02/ | Office | Cardiology | Monserrat Perez, | | | 2019 | Visit | | MD Bandar ALMODOVAR | | | | | | [place], [place] | | | | | | [address] | | | | | | | [...]
--- OUTSIDE RECORDS SUMMARY | ~2019-08-05 | XMS | Encounter Summary ---
Demographics + + + | Address | [address] | | | [place] [address] | + + + | Home Phone | | + + + | Preferred Language | Unknown | + + + | Marital Status | Unknown | + + + | Rastafari Affiliation | Unknown | + + + | Race | Unknown | + + + | Ethnic Group | Unknown | + + + Author + + + | Author | [facility] | | | and [place] | + + + | Organization | [facility] | | | and [place] | + + + | Address | Unknown | + + + | Phone | Unavailable | + + + Support + + + + + | Name | Relationship | Address | Phone | + + + + + | Lobito Romero | LESA | [address] | | | | | [place], [place] | | | | | [address] | | + + + + + | Monie Conrad | ECON | Unknown | | | [place] | | | | + + + + + | Peggy Devi | LESA | Unknown | | + + + + + Care Team Providers + +------+ + | Care Grain Elevator Man Name | Role | Phone | + +------+ + | Brooklyn Helms MD | PCP | | + +------+ + Encounter Details +--------+ + + + + | Date | Type | Department | Care Team | Description | +--------+ + + + + | 08/14/ | Orders Only | [facility] | Conversion | | | 2014 | | CONVERSION DEP [address] | Transaction, | | | | | [address] | Provider Unknown | | | | | [facility] [place] | [phone] | | | | | [address] | | | | | | [phone] | | | +--------+ + + + [...] [place] | | | | | | [address] | | | | | | | | +--------+---------+ + + + documented as of this encounter Visit Diagnoses Not on filedocumented in this encounter"
--- OUTSIDE RECORDS SUMMARY | ~2019-08-05 | XMS | Clinical Summary ---
Demographics + + + | Address | [address] | | | [place] [address] | + + + | Home Phone | | + + + | Preferred Language | Unknown | + + + | Marital Status | Unknown | + + + | Spiritism Affiliation | Unknown | + + + | Race | Unknown | + + + | Ethnic Group | Unknown | + + + Author + + + | Author | [facility] (Historical as of | | | 03-22-19) | + + + | Organization | [facility] (Historical as of | | | 03-22-19) | + + + | Address | Unknown | + + + | Phone | Unavailable | + + + Support + + + + + | Name | Relationship | Address | Phone | + + + + + | Lobito Jung | ECON | [address] | | | | | [place] | | | | | [address] | | + + + + + | Butch Mark | ECON | Unknown | | | Monie Clay | | | | + + + + + | Peggy Devi | ECON | Unknown | | + + + + + | Bibiana Raygoza | ECON | Unknown | | + + + + + Care Team Providers + +------+ + | Care Apn Name | Role | Phone | + +------+ + | Brooklyn Helms MD | PP | | + +------+ + Allergies + + + + + + | Active Allergy | Reactions | Severity | Noted | Comments | | | | | Date | | + + + + + + | Sulfur | Headache | Low | 08/08/19 | | | | | | 14 | | + + + + + + Current Medications + + +--------+---------+------+------+-------+ | Prescription | Sig. | Disp. | Refills | Star | End | Statu | | | | | | t | Date | s | | | | | | Date | | | + + +--------+---------+------+------+-------+ | Multiple | Take 1 tablet by | | | | | Activ | | Vitamins-Minerals | mouth daily. | | | | | e | | (CENTRUM SILVER PO) | | | | | | | + + +--------+---------+------+------+-------+ | nitroGLYCERIN | Place 0.4 mg under | | | | | Activ | | (NITROSTAT) 0.4 MG | the tongue every 5 | | | | | e | | SL tablet | (five) minutes as | | | | | | | | needed. Up to 3 tabs | | | | | | | | in 15 minutes, if | | | | | | | | no relief: call 911 | | | | | | | | or go to ER | | | | | | + + +--------+---------+------+------+-------+ | latanoprost | 1 drop nightly. | | | | | Activ | | (XALATAN) 0.005 % | | | | | | e | | ophthalmic solution | | | | | | | + + +--------+---------+------+------+-------+ | indomethacin | Take 50 mg by mouth | | | | | Activ | | (INDOCIN) 50 MG | 3 (three) times | | | | | e | | capsule | daily as needed. | | | | | | + + +--------+---------+------+------+-------+ | potassium citrate | Take 10 mEq by mouth | | | | | Activ | | (UROCIT-K) 10 MEQ | 2 (two) times | | | | | e | | (1080 MG) SR tablet | daily. | | | | | | + + +--------+---------+------+------+-------+ | calcium-vitamin D | Take 1 tablet by | | | | | Activ | | (OSCAL-500) 500-200 | mouth 2 (two) times | | | | | e | | MG-UNIT per tablet | daily. | | | | | | + + +--------+---------+------+------+-------+ | dorzolamide | Place 1 drop into | | | | | Activ | | (TRUSOPT) 2 % | both eyes 3 (three) | | | | | e | | ophthalmic solution | times daily. | | | | | | + + +--------+---------+------+------+-------+ | | Take 1 tablet by | | | | | Activ | | HYDROcodone-acetamin | mouth every 6 (six) | | | | | e | | ophen (NORCO) 5-325 | hours as needed. | | | | | | | MG per tablet | | | | | | | + + +--------+---------+------+------+-------+ | omeprazole | Take 20 mg by mouth | | | | | Activ | | (PRILOSEC) 20 MG | 2 (two) times daily. | | | | | e | | capsule | | | | | | | + + +--------+---------+------+------+-------+ | predniSONE | Take 5 mg by mouth | | | | | Activ | | (DELTASONE) 5 MG | daily with | | | | | e | | tablet | breakfast. | | | | | | + + +--------+---------+------+------+-------+ | rivaroxaban | Take 20 mg by mouth | | | | | Activ | | (XARELTO) 20 MG | daily with dinner. | | | | | e | | tablet | | | | | | | + + +--------+---------+------+------+-------+ | albuterol (PROAIR | Inhale 2 puffs into | | | | | Activ | | HFA) 108 (90 BASE) | the lungs every 4 | | | | | e | | MCG/ACT inhaler | (four) hours as | | | | | | | | needed. | | | | | | + + +--------+---------+------+------+-------+ | Respiratory | by Does not apply | | | | | Activ | | Therapy Supplies | route as needed. | | | | | e | | (NEBULIZER | | | | | | | | COMPRESSOR) KIT | | | | | | | + + +--------+---------+------+------+-------+ | metolazone | Take 1 tablet by | 30 | 2 | 03/2 | | Activ | | (ZAROXOLYN) 2.5 MG | mouth every other | tablet | | 08/25 | | e | | tablet | day. | | | 18 | | | + + +--------+---------+------+------+-------+ | spironolactone | Take 25 mg by mouth | | | | | Activ | | (ALDACTONE) 25 MG | 2 (two) times daily. | | | | | e | | tablet | | | | | | | + + +--------+---------+------+------+-------+ | potassium chloride | Take 10 mEq by mouth | | | | | Activ | | (K-DUR) 10 MEQ | 2 (two) times daily | | | | | e | | tablet | with meals. | | | | | | + + +--------+---------+------+------+-------+ | metoprolol | Take 1 tablet by | 90 | | 03/1 | | Activ | | (TOPROL-XL) 25 MG 24 | mouth daily. | tablet | | 3/20 | | e | | hr tablet | | | | 19 | | | + + +--------+---------+------+------+-------+ | furosemide (LASIX) | Take 1 tablet by | | | 03/1 | | Activ | | 40 MG tablet | mouth 2 (two) times | | | 10/23 | | e | | | daily. | | | 19 | | | + + +--------+---------+------+------+-------+ Active Problems + + + | Problem | Noted Date | + + + | Chronic diastolic heart failure (HCC) | 10/24/2017 | + + + | Chronic respiratory failure with hypoxia (HCC) | 10/24/2017 | + + + | Hypertensive heart disease with CHF | 08/14/2013 | + + + + + | Last Assessment & Plan: HTN, controlled. 83-year-old white | | female with increasing shortness of breath. There is increasing | | edema, orthopnea PND. Despite this, no significant chest | | discomfort. His echocardiogram shows a decrease in her LV | | systolic function when compared to previous echo 2 years ago. | | Her furosemide is helping her symptoms. Will or crest nuclear | | perfusion study to assess for coronary disease as a cause or | | decompensated heart failure. Also request ultrasound of lower | | extremities to rule out DVT. | + + + + + | Essential hypertension | 08/08/2013 | + + + | Paroxysmal atrial fibrillation (HCC) | 08/08/2013 | + + + + + | Last Assessment & Plan: Paroxysmal atrial fibrillation, | | remains in sinus rhythm. Anticoagulation with aspirin 325 mg | | daily. | + + Resolved Problems + + + + | Problem | Noted | Resolved | | | Date | Date | + + + + | Chest pain, unspecified | 08/08/19 | | | | 14 | 9 | + + + + Family History + + +------+ + | Medical History | Relation | Name | Comments | + + +------+ + | Coronary art dis | Mother | | | + + +------+ + | Diabetes type II | Mother | | | + + +------+ + | Heart disease | Mother | | | + + +------+ + | High cholesterol | Mother | | | + + +------+ + | Hypertension | Mother | | | + + +------+ + + +------+ + + | Relation | Name | Status | Comments | + +------+ + + | Father | | | pneumonia | | | | (Age | | | | | 40) | | + +------+ + + | Mother | | | DMII,heart disease, Parkinsons Disease, | | | | (Age | Glaucoma,HTN | | | | 86) | | + +------+ + + Social History + +-------+ +--------+------+ [...] + +---------+ + | Alcohol Use | Drinks/We | oz/Week | Comments | | | ek | | | + + +---------+ + | No | | | | + + +---------+ + + + + | Sex Assigned at | Date Recorded | | | | + + + | Not on file | | + + + Last Filed Vital Signs + + + + | Vital Sign | Reading | Time Taken | + + + + | Blood Pressure | 128/62 | 10/16/2018 11:40 AM PDT | + + + + | Pulse | 80 | 10/16/2018 11:40 AM PDT | + + + + | Temperature | - | - | + + + + | Respiratory Rate | 18 | 10/16/2018 11:40 AM PDT | + + + + | Oxygen Saturation | 95% | 10/16/2018 11:40 AM PDT | + + + + | Inhaled Oxygen | - | - | | Concentration | | | + + + + | Weight | 90.7 kg (200 lb) | 10/16/2018 11:40 AM PDT | + + + + | Height | 154.9 cm (5' 1") | 10/16/2018 11:40 AM PDT | + + + + | Body Mass Index | 37.79 | 10/16/2018 11:40 AM PDT | + + + + Plan of Treatment + + + + + | Health Maintenance | Due Date | Last Done | Comments | + + + + + | Vaccine: | | | | | Dtap/Tdap/Td (1 - | 9 | | | | Tdap) | | | | + + + + + | Vaccine: Zoster (1 | | | | | of 2) | 0 | | | + + + + + | DEXA SCAN SCREENING | | | | | | 5 | | | + + + + + | Vaccine: | | | | | Pneumococcal 65+ | 5 | | | | Low/Medium Risk (1 | | | | | of 2 - PCV13) | | | | + + + + + | Vaccine: Influenza | | | | | (#1) | 9 | | | + + + + + Results Not on filefrom Last 3 Months Insurance + +--------+ +------+-------+ + | Payer | Benefi | Subscriber | Type | Phone | Address | | | t Plan | ID | | | | | | / | | | | | | | Group | | | | | + +--------+ +------+-------+ + | MEDICARE | MEDICA | [id number] | | | [address] | | | [place] | | | | [place] [address] | | | IP-OP | | | | | + +--------+ +------+-------+ + | PREMERA | PREMER | [id number] | | | [address] [address] | | | A BLUE | 1 | | | [place] | | | CARD | | | | [phone] | + +--------+ +------+-------+ + + +--------+ +--------+ + + | Guarantor Name | Accoun | Relation to | Date | Phone | Billing Address | | | t Type | Patient | of | | | | | | | | | | + +--------+ +--------+ + + | AMANDA JUNG V | Person | Self | [birth year] | Home: | [address] | | | al/Fam | | 1930 | [phone] [address] [place], [place] | | | [place] | | | [phone] | [address] | + +--------+ +--------+ + +
--- OUTSIDE RECORDS SUMMARY | ~2019-08-05 | XMS | Encounter Summary ---
Demographics + + + | Address | [address] | | | [place] [address] | + + + | Home Phone | | + + + | Preferred Language | Unknown | + + + | Marital Status | Unknown | + + + | Jehovah'S Witness Affiliation | Unknown | + + + | Race | Unknown | + + + | Ethnic Group | Unknown | + + + Author + + + | Author | [facility] | | | and [place] | + + + | Organization | [facility] | | | and [place] | + + + | Address | Unknown | + + + | Phone | Unavailable | + + + Support + + + + + | Name | Relationship | Address | Phone | + + + + + | Lobito Romero | LESA | [address] | | | | | [place], [place] | | | | | [address] | | + + + + + | Monie Conrad | ECON | Unknown | | | [place] | | | | + + + + + | Peggy Devi | LESA | Unknown | | + + + + + Care Team Providers + +------+ + | Care Transformer Mechanic Name | Role | Phone | + [...] | | | | [address] | [place], [place] | | | | | [place], [place] | [address] | | | | | [address] | | | | | | [phone] | | | +--------+ + + + [...] | | | | | [place] | | | | | | [address] | | | | | | | [...] | maxP.54 mmHg TR Vmax: 2.57 m/s Director Of Student Aid: | | | Authenticated by: Monserrat [facility] Report Date/Time: 09-21-2017 | | | 13:4:10 | | + + + + + | Procedure Note | + + | Harlan Wallace Conversion - 03/27/2019 3:56 PM PDT Patient Name: Tin Romero of | | : 1930 Performing Physician: Monserrat | | Prudencered rock INDICATIONS------ | | -----CHF, A-fib, SOB, Edema [...] cmLVIDd: 4.83 cmLVPWd: 0.88 cmLVOT Area: 3.37 cb5PKFN Diam: 2.07 cm%FS: 29.10 | | %EF(Teich): [...] (A-L): 15.14 ml/m2LAAs A2C: | | 12.79 fq1NXFVB A-L A2C: 25.65 mlLALs A2C: 5.41 cmLAAs A4C: 14.08 ax6COFSN A-L A4C: | | 32.16 mlLALs A4C: 5.23 cmRAAs: 18.88 xb6GYWSQ A-L: 62.79 mlRAESV MOD: 59.55 | | mlRALs: 4.82 cmTAPSE: 2.35 cmAV maxP.72 mmHgAV meanP.16 mmHgAV Vmax: | | 1.91 m/Julius Vmean: 1.31 m/Julius VTI: 40.90 cmAVA Vmax: 1.85 cm2AVA (VTI): 1.85 | | ng6NXLE Vmax: 0.00 cm2/m2AVAI (VTI): 0.00 cm2/m2LVOT maxP.43 mmHgLVOT meanPG: | | 2.50 mmHgLVSI Dopp: 39.26 ml/m2LVSV Dopp: 75.78 mlLVOT Vmax: 1.05 m/sLVOT Vmean: | | 0.74 m/sLVOT VTI: 22.43 cmMV A Jayden: 1.04 m/sMV DecT: 271.59 msMV E Jayden: 0.86 | | m/sMV E/A Ratio: 0.82MV PHT: 78.76 msMVA By PHT: 2.79 tj6Ipdjpp e': 0.05 | | m/sSeptal E/e': 14.66Lateral e': 0.04 m/sLateral E/e': 17.85RAP: 5 mmHgRVSP: | | 31.54 mmHgTR maxP.54 mmHgTR Vmax: 2.57 m/s Director Of Student Aid:Authenticated by: | | Monserrat [facility] Date/Time: 09-21-2017 13:4:10 IMPRESSION: 1. [...] |TR Vmax: 2.57 m/s | | | |Director Of Student Aid: | |Authenticated by: Liseleatha García | |Report [...]
--- OUTSIDE RECORDS SUMMARY | ~2019-08-05 | XMS | Encounter Summary ---
Demographics + + + | Address | [address] | | | [place] [address] | + + + | Home Phone | | + + + | Preferred Language | Unknown | + + + | Marital Status | Unknown | + + + | Zoroastrianism Affiliation | Unknown | + + + | Race | Unknown | + + + | Ethnic Group | Unknown | + + + Author + + + | Author | [facility] | | | and [place] | + + + | Organization | [facility] | | | and [place] | + + + | Address | Unknown | + + + | Phone | Unavailable | + + + Support + + + + + | Name | Relationship | Address | Phone | + + + + + | Lobito Romero | LESA | [address] | | | | | [place], [place] | | | | | [address] | | + + + + + | Monie Conrad | ECON | Unknown | | | [place] | | | | + + + + + | Peggy Devi | LESA | Unknown | | + + + + + Care Team Providers + +------+ + | Care Personal Banker Name | Role | Phone | + [...] Provider Unknown | | | | | [facility] [place] | [phone] | | | | | [address] | | | | | | [phone] | | | +--------+ + + + [...] [place] | | | | | | [address] | | | | | | | | +--------+---------+ + + + documented as of this encounter Visit Diagnoses Not on filedocumented in this encounter"
--- OUTSIDE RECORDS SUMMARY | ~2019-08-05 | XMS | Clinical Summary ---
Demographics + + + | Address | [address] | | | [place] [address] | + + + | Home Phone | | + + + | Preferred Language | Unknown | + + + | Marital Status | Unknown | + + + | Orthodoxy Affiliation | Unknown | + + + | Race | Unknown | + + + | Ethnic Group | Unknown | + + + Author + + + | Author | [facility] | | | and [place] | + + + | Organization | [facility] | | | and [place] | + + + | Address | Unknown | + + + | Phone | Unavailable | + + + Support + + + + + | Name | Relationship | Address | Phone | + + + + + | Lobito Romero | LESA | [address] | | | | | [place], [place] | | | | | [address] | | + + + + + | Monie Conrad | ECON | Unknown | | | [place] | | | | + + + + + | Peggy Devi | LESA | Unknown | | + + + + + Care Team Providers + +------+ + | Care Conveyancer Name | Role | Phone | + +------+ + | Brooklyn Helms MD | PCP | | + +------+ + Allergies + + + + + + | Active Allergy | Reactions | Severity | Noted | Comments | | | | | Date | | + + + + + + | Sulfur | Headache | Low | 08/08/19 | | | | | | 14 | | + + + + + + Medications + + + +---------+------+------+-------+ | Medication | Sig | Dispensed | Refills | Star | End | Statu | | | | | | t | Date | s | | | | | | Date | | | + + + +---------+------+------+-------+ | MULTIPLE | Take 1 tablet by | | 0 | 01/0 | | Activ | | VITAMINS-MINERALS PO | mouth daily. | | | 10/23 | | e | | | | | | 14 | | | + + + +---------+------+------+-------+ | nitroglycerin | Place 0.4 mg under | | 0 | 01/0 | | Activ | | (NITROSTAT) 0.4 mg | the tongue every 5 | | | 3/20 | | e | | SL tablet | (five) minutes as | | | 14 | | | | | needed. Up to 3 tabs | | | | | | | | in 15 minutes, if | | | | | | | | no relief: call 911 | | | | | | | | or go to ER | | | | | | + + + +---------+------+------+-------+ | potassium citrate | Take 10 mEq by mouth | | 0 | 01/0 | | Activ | | (UROCIT-K) 10 mEq SR | 2 (two) times | | | 3/20 | | e | | tablet | daily. | | | 14 | | | + + + +---------+------+------+-------+ | calcium-vitamin D | Take 1 tablet by | | 0 | 01/0 | | Activ | | (OYSTER SHELL | mouth 2 (two) times | | | 9/20 | | e | | CALCIUM/D) 500 | daily. | | | 14 | | | | mg-200 units per | | | | | | | | tablet | | | | | | | + + + +---------+------+------+-------+ | predniSONE | Take 5 mg by mouth | | 0 | 01/0 | | Activ | | (DELTASONE) 5 mg | daily with | | | 9/20 | | e | | tablet | breakfast. | | | 14 | | | + + + +---------+------+------+-------+ | rivaroxaban | Take 20 mg by mouth | | 0 | 01/0 | | Activ | | (XARELTO) 20 mg | daily with dinner. | | | 9/20 | | e | | tablet | | | | 14 | | | + + + +---------+------+------+-------+ | albuterol (PROAIR | Inhale 2 puffs into | | 0 | 01/0 | | Activ | | HFA) 90 mcg/puff | the lungs every 4 | | | 9/20 | | e | | inhaler | (four) hours as | | | 14 | | | | | needed. | | | | | | + + + +---------+------+------+-------+ | Respiratory | by Does not apply | | 0 | 03/2 | | Activ | | Therapy Supplies | route as needed. | | | 20 | | e | | (NEBULIZER | | | | 18 | | | | COMPRESSOR) KIT | | | | | | | + + + +---------+------+------+-------+ | spironolactone | Take 25 mg by mouth | | 0 | 06/2 | | Activ | | (ALDACTONE) 25 mg | 2 (two) times daily. | | | 02/22 | | e | | tablet | | | | 18 | | | + + + +---------+------+------+-------+ | metoprolol | Take 1 tablet by | 90 | 0 | 03/ | | Activ | | succinate | mouth daily. | tablet | | 20 | | e | | (TOPROL-XL) 25 mg 24 | | | | 19 | | | | hr tablet | | | | | | | + + + +---------+------+------+-------+ | furosemide (LASIX) | Take 1 tablet by | | 0 | 10/04 | | Activ | | 40 mg tablet | mouth 2 (two) times | | | 10/23 | | e | | | daily. | | | 19 | | | + + + +---------+------+------+-------+ Active Problems + + + | Problem | Noted Date | + + + | Chronic diastolic heart failure | 10/24/2017 | + + + | Chronic respiratory failure with hypoxia | 10/24/2017 | + + + | Hypertensive heart disease with CHF | 08/14/2013 | + + + | Essential hypertension | 08/08/2013 | + + + | Paroxysmal atrial fibrillation | 08/08/2013 | + + + Family History + + +------+ + | Medical History | Relation | Name | Comments | + + +------+ + | Coronary artery | Mother | | | | disease | | | | + + +------+ + | Diabetes, NIDDM | Mother | | | + + [...] 86) | | + +------+ + + | Mother | | | | + +------+ + + Social [...] recent travel history available. | + + Last Filed Vital Signs + [...] | Respiratory Rate | 18 | 10/16/2018 11:49 AM | | | | | PDT | [...] | | + + + + + Plan of Treatment +--------+---------+ + + + | Date | Type | Specialty | Care Team | Description | +--------+---------+ + + + | 12/02/ | Office | Cardiology | Monserrat Renner, | | | 2019 | Visit | | MD Bandar [address] | | | | | | [place] | | | | | | [address] | | | | | | | | +--------+---------+ + + + + + + + + | Health Maintenance | Due Date | Last Done | Comments | + + + + + | Vaccine: | | | | | Dtap/Tdap/Td (1 - | 1 | | | | Tdap) | | | | + + + + + | Vaccine: Zoster (1 | | | | | of 2) | 0 | | | + + + + + | Vaccine: | | | | | Pneumococcal 65+ (1 | 5 | | | | of 2 - PCV13) | | | | + + + + + | Adult Annual | | | | | Wellness Visit | 9 | | | + + + + + | Vaccine: Influenza | | | | | (#1) | 9 | | | + + + + + Results Not on filefrom Last 3 Months Insurance + +--------+ +--------+ +---------+--------+ | Payer | Benefi | Subscriber | Effect | Phone | Address | Type | | | t Plan | ID | annmarie | | | | | | / | | Dates | | | | | | Group | | | | | | + +--------+ +--------+ +---------+--------+ | MEDICARE | MEDICA | [id number] | 04/06/19 | [phone] | | Medica | | | RE | | 95-Pre | 5 | | re | | | PART A | | sent | | | | | | AND B | | | | | | + +--------+ +--------+ +---------+--------+ + +--------+ +--------+ + + | Guarantor Name | Accoun | Relation to | Date | Phone | Billing Address | | | t Type | Patient | of | | | | | | | | | | + +--------+ +--------+ + + | Amanda Romero V | Person | Self | [birth year] | [id number] | | | al/Fam | | 1930 | [phone] | [address] [place], [place] | | | tori | | | 2 (Home) | [address] | + +--------+ +--------+ + + Advance Directives + + + + + | Type | Date Recorded | Patient | Explanation | | | | Linux Devops Engineer | | + + + + + | Power of | | | | | Dry House Worker | | | | + + + + + | Advance | | | | | Directive | | | | + + + + +
--- OUTSIDE RECORDS SUMMARY | ~2019-08-05 | XMS | Encounter Summary ---
Demographics + + + | Address | [address] | | | [place] [address] | + + + | Home Phone | | + + + | Preferred Language | Unknown | + + + | Marital Status | Unknown | + + + | Restorationism Affiliation | Unknown | + + + | Race | Unknown | + + + | Ethnic Group | Unknown | + + + Author + + + | Author | [facility] | | | and [place] | + + + | Organization | [facility] | | | and [place] | + + + | Address | Unknown | + + + | Phone | Unavailable | + + + Support + + + + + | Name | Relationship | Address | Phone | + + + + + | Lobito Romero | LESA | [address] | | | | | [place], [place] | | | | | [address] | | + + + + + | Monie Conrad | ECON | Unknown | | | [place] | | | | + + + + + | Peggy Devi | LESA | Unknown | | + + + + + Care Team Providers + +------+ + | Care Materials Management Supervisor Name | Role | Phone | + [...] Provider Unknown | | | | | [place] | [phone] | | | | | [address] | | | | | | [phone] | | | +--------+ + + + [...] [place] | | | | | | [address] | | | | | | | | +--------+---------+ + + + documented as of this encounter Visit Diagnoses Not on filedocumented in this encounter"
--- OUTSIDE RECORDS SUMMARY | ~2019-08-05 | XMS | Encounter Summary ---
Demographics + + + | Address | [address] | | | [place] [address] | + + + | Home Phone | | + + + | Preferred Language | Unknown | + + + | Marital Status | Unknown | + + + | Catholic Affiliation | Unknown | + + + | Race | Unknown | + + + | Ethnic Group | Unknown | + + + Author + + + | Author | [facility] | | | and [place] | + + + | Organization | [facility] | | | and [place] | + + + | Address | Unknown | + + + | Phone | Unavailable | + + + Support + + + + + | Name | Relationship | Address | Phone | + + + + + | Lobito Romero | LESA | [address] | | | | | [place], [place] | | | | | [address] | | + + + + + | Monie Conrad | ECON | Unknown | | | [place] | | | | + + + + + | Peggy Devi | LESA | Unknown | | + + + + + Care Team Providers + +------+ + | Care Manufacture Specialist Name | Role | Phone | + [...] [address] | | | | | [address] | [address]ul [address] | | | | | [phone] | [place] [address] | | | | | | [phone] | | | | | | | | +--------+ + + + [...] | | | | | [place], [place] | | | | | | [address] | | | | | | | [...] Performed At | + + + | [facility] Nuclear Lexiscan Stress Test History: | [...] Rodrigo, Rad Conversion - 03/27/2019 9:41 PM [facility] | | Lexiscan Stress Test History:83 Year [...]
--- OUTSIDE RECORDS SUMMARY | ~2019-08-05 | XMS | Encounter Summary ---
Demographics + + + | Address | [address] | | | [place] [address] | + + + | Home Phone | | + + + | Preferred Language | Unknown | + + + | Marital Status | Unknown | + + + | Shinto Affiliation | Unknown | + + + | Race | Unknown | + + + | Ethnic Group | Unknown | + + + Author + + + | Author | [facility] | | | and [place] | + + + | Organization | [facility] | | | and [place] | + + + | Address | Unknown | + + + | Phone | Unavailable | + + + Support + + + + + | Name | Relationship | Address | Phone | + + + + + | Lobito Romero | LESA | [address] | | | | | [place], [place] | | | | | [address] | | + + + + + | Monie Conrad | ECON | Unknown | | | [place] | | | | + + + + + | Peggy Devi | LESA | Unknown | | + + + + + Care Team Providers + +------+ + | Care Manager Motor Name | Role | Phone | + +------+ + | Brooklyn Helms MD | PCP | | + +------+ + Encounter Details +--------+ + + + + | Date | Type | Department | Care Team | Description | +--------+ + + + + | 10/16/ | Orders Only | [facility] | Conversion | | | 2019 | | CONVERSION [address] | Transaction, | | | | | [address] | Provider Unknown | | | | | [place] | [phone] | | | | | [address] | | | | | | [phone] | | | +--------+ + + + [...] [place] | | | | | | [address] | | | | | | | | +--------+---------+ + + + documented as of this encounter Visit Diagnoses Not on filedocumented in this encounter"
--- OUTSIDE RECORDS SUMMARY | ~2019-08-05 | XMS | Encounter Summary ---
Demographics + + + | Address | [address] | | | [place] [address] | + + + | Home Phone | | + + + | Preferred Language | Unknown | + + + | Marital Status | Unknown | + + + | Scientologist Affiliation | Unknown | + + + | Race | Unknown | + + + | Ethnic Group | Unknown | + + + Author + + + | Author | [facility] | | | and [place] | + + + | Organization | [facility] | | | and [place] | + + + | Address | Unknown | + + + | Phone | Unavailable | + + + Support + + + + + | Name | Relationship | Address | Phone | + + + + + | Lobito Romero | LESA | [address] | | | | | [place], [place] | | | | | [address] | | + + + + + | Monie Conrad | ECON | Unknown | | | [place] | | | | + + + + + | Peggy Devi | LESA | Unknown | | + + + + + Care Team Providers + +------+ + | Care Director Of Business Services Name | Role | Phone | + [...] Provider Unknown | | | | | [place] | [phone] | | | | | [address] | | | | | | [phone] | | | +--------+ + + + [...] [place] | | | | | | [address] | | | | | | | | +--------+---------+ + + + documented as of this encounter Visit Diagnoses Not on filedocumented in this encounter"
--- OUTSIDE RECORDS SUMMARY | ~2019-08-05 | XMS | Encounter Summary ---
Demographics + + + | Address | [address] | | | [place] [address] | + + + | Home Phone | | + + + | Preferred Language | Unknown | + + + | Marital Status | Unknown | + + + | Temple Affiliation | Unknown | + + + | Race | Unknown | + + + | Ethnic Group | Unknown | + + + Author + + + | Author | [facility] | | | and [place] | + + + | Organization | [facility] | | | and [place] | + + + | Address | Unknown | + + + | Phone | Unavailable | + + + Support + + + + + | Name | Relationship | Address | Phone | + + + + + | Lobito Romero | LESA | [address] | | | | | [place], [place] | | | | | [address] | | + + + + + | Monie Conrad | ECON | Unknown | | | [place] | | | | + + + + + | Peggy Devi | LESA | Unknown | | + + + + + Care Team Providers + +------+ + | Care Shipping Support Clerk Name | Role | Phone | + +------+ + | Brooklyn Helms MD | PCP | | + +------+ + Encounter Details +--------+ + + + + | Date | Type | Department | Care Team | Description | +--------+ + + + + | 03/21/ | Orders Only | [facility] | Monserrat Renner, | Paroxysmal atrial | | 2019 | | CARDIOLOGY [place] | [address] | fibrillation (HCC); | | | | [address] [facility] | [place], [place] | Paroxysmal atrial | | | | [address] | [address] | fibrillation (HCC); | | | | [place] | | Chronic diastolic | | | | [address] | | heart failure (HCC); | | | | [phone] | | Chronic respiratory | | | [...] | | | | | [place], [place] | | | | | | [address] | | | | | | | [...]
--- OUTSIDE RECORDS SUMMARY | ~2019-08-05 | XMS | Encounter Summary ---
Demographics + + + | Address | [address] | | | [place] [address] | + + + | Home Phone | | + + + | Preferred Language | Unknown | + + + | Marital Status | Unknown | + + + | Zoroastrian Affiliation | Unknown | + + + | Race | Unknown | + + + | Ethnic Group | Unknown | + + + Author + + + | Author | [facility] | | | and [place] | + + + | Organization | [facility] | | | and [place] | + + + | Address | Unknown | + + + | Phone | Unavailable | + + + Support + + + + + | Name | Relationship | Address | Phone | + + + + + | Lobito Romero | LESA | [address] | | | | | [place], [place] | | | | | [address] | | + + + + + | Monie Conrad | ECON | Unknown | | | [place] | | | | + + + + + | Peggy Devi | LESA | Unknown | | + + + + + Care Team Providers + +------+ + | Care Financial Services Sales Representative Name | Role | Phone [...] Provider Unknown | | | | | [facility] [place] | [phone] | | | | | [phone] | (Fax) | | | | | [phone] | | | +--------+ + + + [...] [place] | | | | | | [address] | | | | | | | | +--------+---------+ + + + documented as of this encounter Visit Diagnoses Not on filedocumented in this encounter"
--- OUTSIDE RECORDS SUMMARY | ~2019-08-05 | XMS | Encounter Summary ---
Demographics + + + | Address | [address] | | | [place] [address] | + + + | Home Phone | | + + + | Preferred Language | Unknown | + + + | Marital Status | Unknown | + + + | Oriental Orthodox Affiliation | Unknown | + + + | Race | Unknown | + + + | Ethnic Group | Unknown | + + + Author + + + | Author | [facility] | | | and [place] | + + + | Organization | [facility] | | | and [place] | + + + | Address | Unknown | + + + | Phone | Unavailable | + + + Support + + + + + | Name | Relationship | Address | Phone | + + + + + | Lobito Romero | LESA | [address] | | | | | [place], [place] | | | | | [address] | | + + + + + | Monie Conrad | ECON | Unknown | | | [place] | | | | + + + + + | Peggy Devi | LESA | Unknown | | + + + + + Care Team Providers + +------+ + | Care Fish Warden Name | Role | Phone | + [...] Provider Unknown | | | | | [facility] | [phone] | | | | | [address] | | | | | | [phone] | | | +--------+ + + + [...] [place] | | | | | | [address] | | | | | | | | +--------+---------+ + + + documented as of this encounter Visit Diagnoses Not on filedocumented in this encounter"
--- OUTSIDE RECORDS SUMMARY | ~2019-08-05 | XMS | Encounter Summary ---
Demographics + + + | Address | [address] | | | [place] [address] | + + + | Home Phone | | + + + | Preferred Language | Unknown | + + + | Marital Status | Unknown | + + + | Alevism Affiliation | Unknown | + + + | Race | Unknown | + + + | Ethnic Group | Unknown | + + + Author + + + | Author | [facility] | | | and [place] | + + + | Organization | [facility] | | | and [place] | + + + | Address | Unknown | + + + | Phone | Unavailable | + + + Support + + + + + | Name | Relationship | Address | Phone | + + + + + | Lobito Romero | LESA | [address] | | | | | [place], [place] | | | | | [address] | | + + + + + | Monie Conrad | ECON | Unknown | | | [place] | | | | + + + + + | Peggy Devi | LESA | Unknown | | + + + + + Care Team Providers + +------+ + | Care Tailercpa Name | Role | Phone | + +------+ + | Brooklyn Helms MD | PCP | | + +------+ + Encounter Details +--------+ + + + + | Date | Type | Department | Care Team | Description | +--------+ + + + + | 03/21/ | Orders Only | [facility] | Monserrat Renner, | Paroxysmal atrial | | 2019 | | CARDIOLOGY DEON | [address] | fibrillation (HCC); | | | | [address] [facility] | [place], [place] | Paroxysmal atrial | | | | [address] | [address] | fibrillation (HCC); | | | | [place] | | Chronic diastolic | | | | [address] | | heart failure (HCC); | | | | [phone] | | Chronic respiratory | | | [...] | | | | | [place], [place] | | | | | | [address] | | | | | | | [...]
--- OUTSIDE RECORDS SUMMARY | ~2019-08-05 | XMS | Encounter Summary ---
Demographics + + + | Address | [address] | | | [place] [address] | + + + | Home Phone | | + + + | Preferred Language | Unknown | + + + | Marital Status | Unknown | + + + | Roman Catholic Affiliation | Unknown | + + + | Race | Unknown | + + + | Ethnic Group | Unknown | + + + Author + + + | Author | [facility] | | | and [place] | + + + | Organization | [facility] | | | and [place] | + + + | Address | Unknown | + + + | Phone | Unavailable | + + + Support + + + + + | Name | Relationship | Address | Phone | + + + + + | Lobito Romero | LESA | [address] | | | | | [place], [place] | | | | | [address] | | + + + + + | Monie Conrad | ECON | Unknown | | | [place] | | | | + + + + + | Peggy Devi | LESA | Unknown | | + + + + + Care Team Providers + +------+ + | Care Installation Manager Name | Role | Phone | [...] + + | 04/09/ | Office | [facility] | Monserrat Perez, | Chronic diastolic | | 2019 | Visit | CARDIOLOGY DEON | MD Bandar ALMODOVAR | heart failure (HCC) | | | | [address] | [place], [place] | (Primary Dx); | | | | [place] [address] | [address] | Essential | | | | [place] | | hypertension; | | | | [address] | | Paroxysmal atrial | | | | [phone] | | fibrillation (HCC) | +--------+---------+ + [...] No change in medication. Was evaluated in [facility] in November 2018 for shortness [...] and pickled vegetables Previously was hospitalized in [facility] in September 2017 secondary to exacerbat [...] No change from previous EKG. 09/20/2017 From [facility] showed normal sinus rhythm, left axis [...] | | | | | [place], [place] | | | | | | [address] | | | | | | | [...]
--- OUTSIDE RECORDS SUMMARY | ~2019-08-05 | XMS | Encounter Summary ---
Demographics + + + | Address | [address] | | | [place] [address] | + + + | Home Phone | | + + + | Preferred Language | Unknown | + + + | Marital Status | Unknown | + + + | Yazidi Affiliation | Unknown | + + + | Race | Unknown | + + + | Ethnic Group | Unknown | + + + Author + + + | Author | [facility] | | | and [place] | + + + | Organization | [facility] | | | and [place] | + + + | Address | Unknown | + + + | Phone | Unavailable | + + + Support + + + + + | Name | Relationship | Address | Phone | + + + + + | Lobito Romero | LESA | [address] | | | | | [place], [place] | | | | | [address] | | + + + + + | Monie Conrad | ECON | Unknown | | | [place] | | | | + + + + + | Peggy Deiv | LESA | Unknown | | + + + + + Care Team Providers + +------+ + | Care Astronomy Instructor Name | Role | Phone | + [...] Rahul Crespo | | | | | [phone] | [place] [address] | | | | | | [phone] | | | | | | | [...] | | | | | [place], [place] | | | | | | [address] | | | | | | | [...] Performed At | + + + | [facility] CARDIOLOG[facility] Nuclear Lexiscan Stress Test History: [...] Rodrigo, Rad Conversion - 03/27/2019 9:41 PM [facility] | | Lexiscan Stress Test History:83 Year [...]
--- OUTSIDE RECORDS SUMMARY | ~2019-08-05 | XMS | Clinical Summary ---
Demographics + + + | Address | [address] | | | [place] [address] | + + + | Home Phone | | + + + | Preferred Language | Unknown | + + + | Marital Status | Unknown | + + + | Anabaptism Affiliation | Unknown | + + + | Race | Unknown | + + + | Ethnic Group | Unknown | + + + Author + + + | Author | [facility]Histor[facility] of | | | 03-22-19) | + + + | Organization | [facility] (Historical as of | | | 03-22-19) | + + + | Address | Unknown | + + + | Phone | Unavailable | + + + Support + + + + + | Name | Relationship | Address | Phone | + + + + + | Lobito Jung | ECON | [address] | | | | | [place] | | | | | [address] | | + + + + + [...] Team Providers + +------+ + | Care Jackscrew Man Name | Role | Phone | [...] +------+-------+ + | MEDICARE | MEDICA | [id number] | | | [address] | | | RE | | | | [place] [address] | | | IP-OP | | | | | + +--------+ +------+-------+ + | PREMERA | PREMER | [id number] | | | [address] [address] | | | A BLUE | 1 | | | [place] | | | CARD | | | | [address] | + +--------+ +------+-------+ + + +--------+ +--------+ + + | Guarantor Name | Accoun | Relation to | Date | Phone | Billing Address | | | t Type | Patient | of | | | | | | | | | | + +--------+ +--------+ + + | AMANDA JUNG V | Person | Self [birth year] | Home: | [address] | | | al/Fam | | 1930 | [phone] | [address] [place], [place] | | | [place] | | | [phone] | [address] | + +--------+ +--------+ + +
--- OUTSIDE RECORDS SUMMARY | ~2019-08-05 | XMS | Encounter Summary ---
Demographics + + + | Address | [address] | | | [place] [address] | + + + | Home Phone | | + + + | Preferred Language | Unknown | + + + | Marital Status | Unknown | + + + | Latter Day Affiliation | Unknown | + + + | Race | Unknown | + + + | Ethnic Group | Unknown | + + + Author + + + | Author | [facility] | | | and [place] | + + + | Organization | [facility] | | | and [place] | + + + | Address | Unknown | + + + | Phone | Unavailable | + + + Support + + + + + | Name | Relationship | Address | Phone | + + + + + | Lobito Romero | LESA | [address] | | | | | [place], [place] | | | | | [address] | | + + + + + | Monie Conrad | ECON | Unknown | | | [place] | | | | + + + + + | Peggy Devi | LESA | Unknown | | + + + + + Care Team Providers + +------+ + | Care Telegraph Office Manager Name | Role | Phone | [...] Provider Unknown | | | | | [place] | [phone] | | | | | [address] | | | | | | [phone] | | | +--------+ + + + [...] [place] | | | | | | [address] | | | | | | | | +--------+---------+ + + + documented as of this encounter Visit Diagnoses Not on filedocumented in this encounter"
--- OUTSIDE RECORDS SUMMARY | ~2019-08-05 | XMS | Clinical Summary ---
Demographics + + + | Address | [address] | | | [place] [address] | + + + | Home Phone | | + + + | Preferred Language | Unknown | + + + | Marital Status | Unknown | + + + | Hoahaoism Affiliation | Unknown | + + + | Race | Unknown | + + + | Ethnic Group | Unknown | + + + Author + + + | Author | [facility] | | | and [place] | + + + | Organization | [facility] | | | and [place] | + + + | Address | Unknown | + + + | Phone | Unavailable | + + + Support + + + + + | Name | Relationship | Address | Phone | + + + + + | Lobito Romero | LESA | [address] | | | | | [place], [place] | | | | | [address] | | + + + + + | Monie Conrad | ECON | Unknown | | | [place] | | | | + + + + + | Peggy Devi | LESA | Unknown | | + + + + + Care Team Providers + +------+ + | Care Retinal Surgeon Name | Role | Phone | + [...] | | | | | [place] | | | | | | [address] | | | | | | | [...] +--------+ +---------+--------+ | MEDICARE | MEDICA | [id number] | 04/06/19 | [phone] | | Medica [...] Person | Self | [birth year] | [address] | | | al/Fam | | 1930 | [phone] | [address] [place], [place] | | | tori | | | 2 (Home) | [address] | + +--------+ +--------+ + + Advance Directives + + + + + | Type | Date Recorded | Patient | Explanation | | | | Tax Economist | | + + + + + | Power of | | | | | Commercial Assistant | | | | + + + + + | Advance | | | | | Directive | | | | + + + + +
--- OUTSIDE RECORDS SUMMARY | ~2019-08-05 | XMS | Encounter Summary ---
Demographics + + + | Address | [address] | | | [place] [address] | + + + | Home Phone [...] | Author | [facility] | | | and [place] | + + + | Organization | [facility] | | | and [place] | + + + | Address | Unknown | + + + | Phone | Unavailable | + + + Support + + + + + | Name | Relationship | Address | Phone | + + + + + | Lobito Romero | LESA | [address] | | | | | [place], [place] | | | | | [address] | | + + + + + | Monie Conrad | ECON | Unknown | | | [place] | | | | + + + + + | Peggy Devi | LESA | Unknown | | + + + + + Care Team Providers + +------+ + | Care Perianesthesia Manager Name | Role | Phone | [...] Provider Unknown | | | | | [facility] [place] | [phone] | | | | | [phone] | (Fax) | | | | | [phone] | | | +--------+ + + + [...] [place] | | | | | | [address] | | | | | | | | +--------+---------+ + + + documented as of this encounter Visit Diagnoses Not on filedocumented in this encounter"
[2019-08-05] MEDS ORDERED: SPIRONOLACTONE25 MG PO (02:48)
--- NOTE | 2019-08-06 06:21 | EKG ---
[facility] [address] 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
== END 2019-08-05 04:07 | disposition home or self-care (01) ==
LOC: ED 02:03
DX: J20.9 Acute bronchitis, unspecified (principal); I11.0 Hypertensive heart disease with heart failure; I50.9 Heart failure, unspecified; K21.9 Gastro-esophageal reflux disease without esophagitis; E78.5 Hyperlipidemia, unspecified; I48.91 Unspecified atrial fibrillation; Z88.2 Allergy status to sulfonamides; Z88.5 Allergy status to narcotic agent; Z79.52 Long term (current) use of systemic steroids
CPT/HCPCS: 71045; 80053; 83735; 84484; 85025; 93005; 93010; 99285-25

== ENCOUNTER 2020-01-09 18:20 | Emergency (ER) | payer MEDICARE, BC ==
[~2020-01-09] VITALS: Ht 157.5 cm; Wt 90.3 kg
--- OUTSIDE RECORDS SUMMARY | ~2020-01-09 | XMS | Encounter Summary ---
Demographics + + + | Address | [address] | | | [place] [address] | + + + | Home Phone | | + + + | Preferred Language | Unknown | + + + | Marital Status | Unknown | + + + | Episcopal Affiliation | Unknown | + + + | Race | Unknown | + + + | Ethnic Group | Unknown | + + + Author + + + | Author | [facility] | | | and [place] | + + + | Organization | [facility] | | | and [place] | + + + | Address | Unknown | + + + | Phone | Unavailable | + + + Support + + + + + | Name | Relationship | Address | Phone | + + + + + | Lobito Romero | LESA | [address] | | | | | [place], [place] | | | | | [address] | | + + + + + | Monie Conrad | ECON | Unknown | | | [place] | | | | + + + + + | Peggy Devi | LESA | Unknown | | + + + + + Care Team Providers + +------+ + | Care Central Scheduler Name | Role | Phone | + +------+ + | Brooklyn Helms MD | PCP | | + +------+ + Encounter Details +--------+ + + + + | Date | Type | Department | Care Team | Description | +--------+ + + + + | 01/30/ | Orders Only | [facility] | Conversion | | | 2018 | | CONVERSION DEP [address] | Transaction, | | | | | [address] | Provider Unknown | | | | | [facility] [place] | [phone] | | | | | [address] | | | | | | [phone] | | | +--------+ + + + + Social History + +-------+ +--------+------+ | Tobacco Use | Types | Packs/Day | Years | Date | | | | | Used | | + +-------+ +--------+------+ | Never Assessed | | | | | + +-------+ +--------+------+ + + + | Sex Assigned at | Date Recorded | | | | + + + | Not on file | | + + + + + + + | Job Start Date | Occupation | Industry | + + + + | Not on file | Not on file | Not on file | + + + + + + + + | Travel History | Travel Start | Travel End | + + + + + + | No recent travel history available. | + + documented as of this encounter Plan of Treatment +--------+---------+ + + + | Date | Type | Specialty | Care Team | Description | +--------+---------+ + + + | 06/23/ | Office | Cardiology | Monserrat Renner, | | | 2019 | Visit | | MD [address] [place] | | | | | | [place] | | | | | | [address] | | | | | | | | +--------+---------+ + + + documented as of this encounter Visit Diagnoses Not on filedocumented in this encounter"
--- OUTSIDE RECORDS SUMMARY | ~2020-01-09 | XMS | Encounter Summary ---
Demographics + + + | Address | [address] | | | [place] [address] | + + + | Home Phone | | + + + | Preferred Language | Unknown | + + + | Marital Status | Unknown | + + + | Sabianism Affiliation | Unknown | + + + | Race | Unknown | + + + | Ethnic Group | Unknown | + + + Author + + + | Author | [facility] | | | and [place] | + + + | Organization | [facility] | | | and [place] | + + + | Address | Unknown | + + + | Phone | Unavailable | + + + Support + + + + + | Name | Relationship | Address | Phone | + + + + + | Lobito Romero | LESA | [address] | | | | | [place], [place] | | | | | [address] | | + + + + + | Monie Conrad | ECON | Unknown | | | [place] | | | | + + + + + | Peggy Devi | LESA | Unknown | | + + + + + Care Team Providers + +------+ + | Care Business Systems Administrator Name | Role | Phone | + +------+ + | Brooklyn Helms MD | PCP | | + +------+ + Encounter Details +--------+ + + + + | Date | Type | Department | Care Team | Description | +--------+ + + + + | 09/21/ | Orders Only | [facility] | Shauna Graham, | | | 2018 | | CONVERSION [address] | MD [address] | | | | | [address] | [place], [place] | | | | | [place], [place] | [address] | | | | | [address] | | | | | | [phone] | | | +--------+ + + + [...] [place] | | | | | | [place] | | | | | | [address] | | | | | | | | +--------+---------+ + + + documented as of this encounter Procedures + +--------+ + + + | Procedure Name | Priori | Date/Time | Associated Diagnosis | Comments | | | ty | | | | + +--------+ + + + | ECHO INTERPRETATION | Routin | 09/21/2017 | | Results for this | | OF OUTSIDE FILMS | e | 11:53 AM | | procedure are in the | | | | PST | | results section. | + +--------+ + + + documented in this encounter Results [place]CHO Interpretation of Outside Films (09/21/2017 11:53 AM PST) + + | Specimen | + + | | + + + + + | Impressions | Performed At | + + + | 1. This was a technically difficult study with suboptimal views. 2. | | | The left ventricle appears normal in size with hyperdynamic systolic | | | function EF >70%. 3. The right ventricle is mildly enlarged with | | | normal systolic function. 4. The aortic valve is mildly calcified | | | with mildly elevated gradient. 5. There is no pericardial effusion. | | + + + + + + | Narrative | Performed At | + + + | Patient Name: Amanda Romero Date of : 1930 | | | Performing Physician: Monserrat Renner | | | | | | INDICATIONS CHF, A-fib, SOB, Edema CONCLUSIONS | | | 1. This was a technically difficult study with suboptimal | | | views. 2. The left ventricle appears normal in size with | | | hyperdynamic systolic function EF >70%. 3. The right ventricle is | | | mildly enlarged with normal systolic function. 4. The aortic valve is | | | mildly calcified with mildly elevated gradient. 5. There is no | | | pericardial effusion. FINDINGS -------- ECG rhythm: Sinus | | | rhythm. Study: A 2-dimensional transthoracic echocardiogram with | | | m-mode, spectral and color flow Doppler was perfomed. Study: This was | | | a technically difficult study with suboptimal views. Left Ventricle: | | | Overall left ventricular systolic function is normal with, an EF | | | between 60 - 65 %. Left Ventricle: The left ventricle cavity size is | | | normal. Left Ventricle: Left ventricular wall thickness is normal. | | | Left Ventricle: No regional wall motion abnormalities. Right | | | Ventricle: The right ventricle is mildly enlarged measuring between | | | 3.4 - 3.7 cm. Right Ventricle: The right ventricular systolic | | | function is normal. Left Atrium: The left atrial size is normal. | | | Right Atrium: The right atrium is mildly enlarged. Aortic Valve: | | | Aortic valve is trileaflet. Aortic Valve: The aortic valve is mildly | | | calcified. Aortic Valve: Mild aortic stenosis with peak/mean pressure | | | gradient of 14.73mmHg / 8.17mmHg, the aortic valve area by continuity | | | equation is 1.9cm . Mitral Valve: No mitral regurgitation. | | | Mitral Valve: Mild mitral annular calcification present. Tricuspid | | | Valve: The tricuspid valve appears structurally normal. Tricuspid | | | Valve: There is no evidence of pulmonary hypertension. Tricuspid | | | Valve: The right ventricular systolic pressure (pulmonary artery | | | systolic pressure), as measured by Doppler, is 31.55mmHg. Tricuspid | | | Valve: The poor TR signal prevents accurate estimation of pulmonary | | | pressures. Pulmonic Valve: The pulmonic valve was not well | | | visualized. Pericardium: There is no pericardial effusion. | | | Pericardium: No pleural effusion seen. IVC/Hepatic Veins: The IVC is | | | normal size (1.5-2.5cm) and collapses >50% with sniff, consistent with | | | central venous pressures of 5-10mmHg. Aorta: Aortic arch not seen. | | | MEASUREMENTS Ao asc: 3.28 cm Ao Diam: 2.81 | | | cm Ao sinus: 2.[address] junct: 3.12 cm IVC: 2.09 cm LA | | | Diam: 3.28 cm EDV(Teich): 109.10 ml IVSd: 1.00 cm LVIDd: | | | 4.83 cm LVPWd: 0.88 cm LVOT Area: 3.37 cm2 LVOT Diam: | | | 2.07 cm %FS: 29.10 % EF(Teich): 55.76 % ESV(Teich): 48.25 | | | ml LVIDs: 3.42 cm SV(Teich): 60.84 ml RV Major: 6.23 cm | | | RVIDd: 2.44 cm LVEF MOD A2C: 63.80 % SV MOD A2C: 23.75 ml | | | LVEF MOD A4C: 61.70 % SV MOD A4C: 34.25 ml EF Biplane: | | | 61.40 % LVEDV MOD BP: 46.14 ml LVESV MOD BP: 17.80 ml LVEDV | | | MOD A2C: 37.23 ml LVLd A2C: 6.64 cm LVEDV MOD A4C: 55.52 ml | | | LVLd A4C: 6.97 cm LVESV MOD A2C: 13.48 ml LVLs A2C: 5.25 | | | cm LVESV MOD A4C: 21.26 ml LVLs A4C: 5.90 cm LAESV(A-L): | | | 29.22 ml LAESV Index (A-L): 15.14 ml/m2 LAAs A2C: 12.79 cm2 | | | LAESV A-L A2C: 25.65 ml LALs A2C: 5.41 cm LAAs A4C: 14.08 | | | cm2 LAESV A-L A4C: 32.16 ml LALs A4C: 5.23 cm RAAs: 18.88 | | | cm2 RAESV A-L: 62.79 ml RAESV MOD: 59.55 ml RALs: 4.82 cm | | | TAPSE: 2.35 cm AV maxP.72 mmHg AV meanP.16 mmHg | | | AV Vmax: 1.91 m/s AV Vmean: 1.31 m/s AV VTI: 40.90 cm PATRICIA | | | Vmax: 1.85 cm2 PATRICIA (VTI): 1.85 cm2 AVAI Vmax: 0.00 cm2/m2 | | | AVAI (VTI): 0.00 cm2/m2 LVOT maxP.43 mmHg LVOT meanPG: | | | 2.50 mmHg LVSI Dopp: 39.26 ml/m2 LVSV Dopp: 75.78 ml LVOT | | | Vmax: 1.05 m/s LVOT Vmean: 0.74 m/s LVOT VTI: 22.43 cm MV | | | A Jayden: 1.04 m/s MV DecT: 271.59 ms MV E Jayden: 0.86 m/s MV | | | E/A Ratio: 0.82 MV PHT: 78.76 ms MVA By PHT: 2.79 cm2 | | | Septal e': 0.05 m/s Septal E/e': 14.66 Lateral e': 0.04 m/s | | | Lateral E/e': 17.85 RAP: 5 mmHg RVSP: 31.54 mmHg TR | | | maxP.54 mmHg TR Vmax: 2.57 m/s Boiler Tube Reamer: | | | Authenticated by: Monserrat [facility] Report Date/Time: 09-21-2017 | | | 13:4:10 | | + + + + + | Procedure Note | + + | Harlan Wallace Conversion - 03/27/2019 3:56 PM PDT Patient Name: Tin Romero of | | : 1930 Performing Physician: Monserrat | | Prudencebastrop INDICATIONS------ | | -----CHF, A-fib, SOB, Edema CONCLUSIONS 1. This was a technically difficult | | study with suboptimal views.2. The left ventricle appears normal in size with | | hyperdynamic systolic function EF >70%.3. The right ventricle is mildly enlarged with | | normal systolic function.4. The aortic valve is mildly calcified with mildly elevated | | gradient.5. There is no pericardial effusion. FINDINGS--------ECG rhythm: Sinus | | rhythm.Study: A 2-dimensional transthoracic echocardiogram with m-mode, spectral and | | color flow Doppler was perfomed.Study: This was a technically difficult study with | | suboptimal views.Left Ventricle: Overall left ventricular systolic function is normal | | with, an EF between 60 - 65 %.Left Ventricle: The left ventricle cavity size is | | normal.Left Ventricle: Left ventricular wall thickness is normal.Left Ventricle: No | | regional wall motion abnormalities.Right Ventricle: The right ventricle is mildly | | enlarged measuring between 3.4 - 3.7 cm.Right Ventricle: The right ventricular systolic | | function is normal.Left Atrium: The left atrial size is normal.Right Atrium: The right | | atrium is mildly enlarged.Aortic Valve: Aortic valve is trileaflet.Aortic Valve: The | | aortic valve is mildly calcified.Aortic Valve: Mild aortic stenosis with peak/mean | | pressure gradient of 14.73mmHg / 8.17mmHg, the aortic valve area by continuity equation | | is 1.9cm .Mitral Valve: No mitral regurgitation.Mitral Valve: Mild mitral annular | | calcification present.Tricuspid Valve: The tricuspid valve appears structurally | | normal.Tricuspid Valve: There is no evidence of pulmonary hypertension.Tricuspid Valve: | | The right ventricular systolic pressure (pulmonary artery systolic pressure), as | | measured by Doppler, is 31.55mmHg.Tricuspid Valve: The poor TR signal prevents accurate | | estimation of pulmonary pressures.Pulmonic Valve: The pulmonic valve was not well | | visualized.Pericardium: There is no pericardial effusion.Pericardium: No pleural | | effusion seen.IVC/Hepatic Veins: The IVC is normal size (1.5-2.5cm) and collapses >50% | | with sniff, consistent with central venous pressures of 5-10mmHg.Aorta: Aortic arch not | | seen. MEASUREMENTS Ao asc: 3.28 cmAo Diam: 2.81 cmAo sinus: 2.92 cmAo | | st junct: 3.12 cmIVC: 2.09 cmLA Diam: 3.28 cmEDV(Teich): 109.10 mlIVSd: 1.00 | | cmLVIDd: 4.83 cmLVPWd: 0.88 cmLVOT Area: 3.37 [id number] Diam: 2.07 cm%FS: 29.10 | | %EF(Teich): 55.76 %ESV(Teich): 48.25 mlLVIDs: 3.42 cmSV(Teich): 60.84 mlRV | | Major: 6.23 cmRVIDd: 2.44 cmLVEF MOD A2C: 63.80 %SV MOD A2C: 23.75 mlLVEF MOD | | A4C: 61.70 %SV MOD A4C: 34.25 mlEF Biplane: 61.40 %LVEDV MOD BP: 46.14 mlLVESV | | MOD BP: 17.80 mlLVEDV MOD A2C: 37.23 mlLVLd A2C: 6.64 cmLVEDV MOD A4C: 55.52 | | mlLVLd A4C: 6.97 cmLVESV MOD A2C: 13.48 mlLVLs A2C: 5.25 cmLVESV MOD A4C: 21.26 | | mlLVLs A4C: 5.90 cmLAESV(A-L): 29.22 mlLAESV Index (A-L): 15.14 ml/m2LAAs A2C: | | 12.79 [id number] A-L A2C: 25.65 mlLALs A2C: 5.41 cmLAAs A4C: 14.08 [id number] A-L A4C: | | 32.16 mlLALs A4C: 5.23 cmRAAs: 18.88 [id number] A-L: 62.79 mlRAESV MOD: 59.55 | | mlRALs: 4.82 cmTAPSE: 2.35 cmAV maxP.72 mmHgAV meanP.16 mmHgAV Vmax: | | 1.91 m/Julius Vmean: 1.31 m/Julius VTI: 40.90 cmAVA Vmax: 1.85 cm2AVA (VTI): 1.85 | | [id number] Vmax: 0.00 cm2/m2AVAI (VTI): 0.00 cm2/m2LVOT maxP.43 mmHgLVOT meanPG: | | 2.50 mmHgLVSI Dopp: 39.26 ml/m2LVSV Dopp: 75.78 mlLVOT Vmax: 1.05 m/sLVOT Vmean: | | 0.74 m/sLVOT VTI: 22.43 cmMV A Jayden: 1.04 m/sMV DecT: 271.59 msMV E Jayden: 0.86 | | m/sMV E/A Ratio: 0.82MV PHT: 78.76 msMVA By PHT: 2.79 [id number] e': 0.05 | | m/sSeptal E/e': 14.66Lateral e': 0.04 m/sLateral E/e': 17.85RAP: 5 mmHgRVSP: | | 31.54 mmHgTR maxP.54 mmHgTR Vmax: 2.57 m/s Boiler Tube Reamer:Authenticated by: | | Monserrat [facility] Date/Time: 09-21-2017 13:4:10 IMPRESSION: 1. This was a | | technically difficult study with suboptimal views.2. The left ventricle appears normal | | in size with hyperdynamic systolic function EF >70%.3. The right ventricle is mildly | | enlarged with normal systolic function.4. The aortic valve is mildly calcified with | | mildly elevated gradient.5. There is no pericardial effusion. | |Ao sinus: 2.92 cm | |Ao st junct: 3.12 cm | |IVC: 2.09 cm | |LA Diam: 3.28 cm | |EDV(Teich): 109.10 ml | |IVSd: 1.00 cm | |LVIDd: 4.83 cm | |LVPWd: 0.88 cm | |LVOT Area: 3.37 cm2 | |LVOT Diam: 2.07 cm | |%FS: 29.10 % | |EF(Teich): 55.76 % | |ESV(Teich): 48.25 ml | |LVIDs: 3.42 cm | |SV(Teich): 60.84 ml | |RV Major: 6.23 cm | |RVIDd: 2.44 cm | |LVEF MOD A2C: 63.80 % | |SV MOD A2C: 23.75 ml | |LVEF MOD A4C: 61.70 % | |SV MOD A4C: 34.25 ml | |EF Biplane: 61.40 % | |LVEDV MOD BP: 46.14 ml | |LVESV MOD BP: 17.80 ml | |LVEDV MOD A2C: 37.23 ml | |LVLd A2C: 6.64 cm | |LVEDV MOD A4C: 55.52 ml | |LVLd A4C: 6.97 cm | |LVESV MOD A2C: 13.48 ml | |LVLs A2C: 5.25 cm | |LVESV MOD A4C: 21.26 ml | |LVLs A4C: 5.90 cm | |LAESV(A-L): 29.22 ml | |LAESV Index (A-L): 15.14 ml/m2 | |LAAs A2C: 12.79 cm2 | |LAESV A-L A2C: 25.65 ml | |LALs A2C: 5.41 cm | |LAAs A4C: 14.08 cm2 | |LAESV A-L A4C: 32.16 ml | |LALs A4C: 5.23 cm | |RAAs: 18.88 cm2 | |RAESV A-L: 62.79 ml | |RAESV MOD: 59.55 ml | |RALs: 4.82 cm | |TAPSE: 2.35 cm | |AV maxP.72 mmHg | |AV meanP.16 mmHg | |AV Vmax: 1.91 m/s | |AV Vmean: 1.31 m/s | |AV VTI: 40.90 cm | |PATRICIA Vmax: 1.85 cm2 | |PATRICIA (VTI): 1.85 cm2 | |AVAI Vmax: 0.00 cm2/m2 | |AVAI (VTI): 0.00 cm2/m2 | |LVOT maxP.43 mmHg | |LVOT meanP.50 mmHg | |LVSI Dopp: 39.26 ml/m2 | |LVSV Dopp: 75.78 ml | |LVOT Vmax: 1.05 m/s | |LVOT Vmean: 0.74 m/s | |LVOT VTI: 22.43 cm | |MV A Jayden: 1.04 m/s | |MV DecT: 271.59 ms | |MV E Jayden: 0.86 m/s | |MV E/A Ratio: 0.82 | |MV PHT: 78.76 ms | |MVA By PHT: 2.79 cm2 | |Septal e': 0.05 m/s | |Septal E/e': 14.66 | |Lateral e': 0.04 m/s | |Lateral E/e': 17.85 | |RAP: 5 mmHg | |RVSP: 31.54 mmHg | |TR maxP.54 mmHg | |TR Vmax: 2.57 m/s | | | |Boiler Tube Reamer: | |Authenticated by: Liseleatha García | |Report Date/Time: 09-21-2017 13:4:10 | | | |IMPRESSION: | |1. This was a technically difficult study with suboptimal views. | |2. The left ventricle appears normal in size with hyperdynamic systolic function EF >70%. | |3. The right ventricle is mildly enlarged with normal systolic function. | |4. The aortic valve is mildly calcified with mildly elevated gradient. | |5. There is no pericardial effusion. | + + documented in this encounter Visit Diagnoses Not on filedocumented in this encounter"
--- OUTSIDE RECORDS SUMMARY | ~2020-01-09 | XMS | Encounter Summary ---
Demographics + + + | Address | [address] | | | [place] [address] | + + + | Home Phone | | + + + | Preferred Language | Unknown | + + + | Marital Status | Unknown | + + + | Lutheran Affiliation | Unknown | + + + | Race | Unknown | + + + | Ethnic Group | Unknown | + + + Author + + + | Author | [facility] | | | and [place] | + + + | Organization | [facility] | | | and [place] | + + + | Address | Unknown | + + + | Phone | Unavailable | + + + Support + + + + + | Name | Relationship | Address | Phone | + + + + + | Lobito Romero | LESA | [address] | | | | | [place], [place] | | | | | [address] | | + + + + + | Monie Conrad | ECON | Unknown | | | [place] | | | | + + + + + | Peggy Devi | LESA | Unknown | | + + + + + Care Team Providers + +------+ + | Care Die Keeper Name | Role | Phone | + +------+ + | Brooklyn Helms MD | PCP | | + +------+ + Encounter Details +--------+ + + + + | Date | Type | Department | Care Team | Description | +--------+ + + + + | 10/24/ | Orders Only | [facility] | Conversion | | | 2018 | | CONVERSION DEP [address] | Transaction, | | | | | [address] | Provider Unknown | | | | | [facility] [place] | [phone] | | | | | [address] | (Fax) | | | | | [phone] | | | +--------+ + + + [...] [place] | | | | | | [address] | | | | | | | | +--------+---------+ + + + documented as of this encounter Visit Diagnoses Not on filedocumented in this encounter"
--- OUTSIDE RECORDS SUMMARY | ~2020-01-09 | XMS | Encounter Summary ---
Demographics + + + | Address | [address] | | | [place] [address] | + + + | Home Phone | | + + + | Preferred Language | Unknown | + + + | Marital Status | Unknown | + + + | Moravian Affiliation | Unknown | + + + | Race | Unknown | + + + | Ethnic Group | Unknown | + + + Author + + + | Author | [facility] | | | and [place] | + + + | Organization | [facility] | | | and [place] | + + + | Address | Unknown | + + + | Phone | Unavailable | + + + Support + + + + + | Name | Relationship | Address | Phone | + + + + + | Lobito Romero | LSEA | [phone] | | | | | [place], [place] | | | | | [address] | | + + + + + | Monie Conrad | ECON | Unknown | | | [place] | | | | + + + + + | Peggy Devi | LESA | Unknown | | + + + + + Care Team Providers + +------+ + | Care Special Education Teachers Name | Role | Phone | + +------+ + | Brooklyn Helms MD | PCP | | + +------+ + Reason for Visit + + + | Reason | Comments | + + + | Follow-up | | + + + Encounter Details +--------+ + + + + | Date | Type | Department | Care Team | Description | +--------+ + + + + | 12/02/ | Virtual | [facility] | Monserrat Renner, | Chronic diastolic | | 2019 | Office | CARDIOLOGY DEON | MD Bandar ALMODOVAR | heart failure (HCC) | | | Visit | [address] [facility] | [place], [place] | (Primary Dx); | | | | [address] [place] [address] | [address] | Paroxysmal atrial | | | | [place] | | fibrillation (HCC) | | | | [address] | | | | | | [phone] | | | +--------+ + + + + Social History + +-------+ +--------+------+ | Tobacco Use | Types | Packs/Day | Years | Date | | | | | Used | | + +-------+ +--------+------+ | Passive Smoke | | | | | | Exposure - Never | | | | | | Smoker | | | | | + +-------+ +--------+------+ + +---+---+---+ | Smokeless Tobacco: | | | | | Never Used | | | | + +---+---+---+ + + +---------+ + | Alcohol Use | Drinks/Week | oz/Week | Comments | + + +---------+ + | Never | | | | + + +---------+ + + + + + | Alcohol Habits | Answer | Date Recorded | + + + + | How often do you have a drink containing | Never | 04/09/2019 | | alcohol? | | | + + + + | How many drinks containing alcohol do you | Not asked | | | have on a typical day when you are | | | | drinking? | | | + + + + | How often do you have six or more drinks on | Not asked | | | one occasion? | | | + + + + + + + | Sex Assigned at [...] + + documented as of this encounter Last Filed Vital Signs + + + + + | Vital Sign | Reading | Time Taken | Comments | + + + + + | Blood Pressure | 98/67 | 12/03/2019 2:17 PM | | | | | PDT | | + + + + + | Pulse | - | - | | + + + + + | Temperature | - | - | | + + + + + | Respiratory Rate | - | - | | + + + + + | Oxygen Saturation | - | - | | + + + + + | Inhaled Oxygen | - | - | | | Concentration | | | | + + + + + | Weight | 89.4 kg (197 lb) | 12/03/2019 2:17 PM | | | | | PDT | | + + + + + | Height | 154.9 cm (5' 1") | 12/03/2019 2:17 PM | | | | | PDT | | + + + + + | Body Mass Index | 37.22 | 12/03/2019 2:17 PM | | | | | PDT | | + + + + + documented in this encounter Progress Notes Monserrat Renner MD - 12/03/2019 2:00 PM PDTFormatting of this note might be different f rom the original. Amanda Romero has independently initiated the visit. Amanda Romero verbally confirmed her cho ice to initiate care by, and consents to receive care by Telephone. Participants: Patient All medical advice and/or management options were discussed 12/03/2019. Clinical discussion length with provider (including additional time spent for relevant rosalina t review to patient's care): 11-20 minutes of medical discussion via telephone visit ([id number]) Patient has not been seen in office within the past 7 days, and outcome of this call is not to recommend soonest available office visit. No follow-ups on file. Vitals: 12/03/19 1417 BP: 98/67 PainSc: 0 - No pain PainLoc: Chest Subjective: Patient ID: Amanda Romero is a 89 y.o. female. CC: Chief Complaint Patient presents with Follow-up HPI: Patient is 89 y.o. with complex past medical history. 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 Hospitalization no change in medication. Currently at home self quarantine in the [facility]. Was evaluated in [facility] in November 2018 for shortness of breath, at that time she had a flu. Discharged home. History of heart failure with preserved systolic function. Continue to be on home O2 at 2 L. Continue to take furosemide 40 mg 2 times a day. No current use of metolazone. Recently was difficult to control her diet especially with the premade meals and the pepper mariama, sausages, beef jerky, canned and pickled vegetables Previously was hospitalized in [facility] in September 2017 secondary to exacerbat ion of chronic obstructive point disease. Was evaluated by Dr. Ibarra in 2013 however did not return for any follow-up since then. At t hat time she has history of hypertension. Since then she was diagnosed with appears to be pa roxysmal atrial fibrillation and she has been on anticoagulation since then. DATA 08/05/2019 BC 4.7, hemoglobin 11.4, platelets 142, sodium 137, potassium 3.9, chloride 96, bicarb 39, BUN 22, creatinine 1.2. GFR 42. AST 16, ALT 10, alk phos 66. EK10/16/2018 Ordered and reviewed by myself showed normal sinus rhythm, poor R-wave progression possible septal old infarct. No change from previous EKG. 09/20/2017 From [facility] showed normal sinus rhythm, left axis deviation, R wave progressi on, nonspecific intraventricular conduction delay. Last Echo:09/21/2017 DDS, normal LV size and hyperdynamic systolic function EF >70%. Normal RV size and function . Mildly calcified aortic valve with mild increased gradient. Last stress test:2014 Reported with no clear reversible defect to suggest ischemia Last cath: Carotid US: AAA screening: Lower extremity US: OTHERS: Assessment & Plan Patient is 89 y.o. with 1. Chronic decompensated diastolic heart failure. 2. Chronic respiratory failure secondary to chronic obstructive pulmonary disease on home O 2. 3. Obesity. 4. Hypertension. 5. Paroxysmal atrial fibrillation. CHADSVASc score of 4. On anticoagulation. Recommendations: Patient relatively has been stable lately. Decision making and gauging her symptoms will be challenging in the view of advanced chroni c obstructive pulmonary disease requiring home O2 and heart failure with preserved ejection fraction. We will continue with furosemide 40 mg twice daily. Spironolactone 25 mg p.o., Metoprolol succinate 25 mg p.o. daily can use an extra pill for recurrent palpitations/atrial fibrillation. On anticoagulation with rivaroxaban. Readdressed with the patient refraining from any canned SALTED food. Will call with any change in symptoms. We will follow-up with the patient 6 months or earlier if needed. Monserrat Renner MD 12/03/2019 documented in this encounter Plan of Treatment +--------+---------+ + + + | Date | Type | Specialty | Care Team | Description | +--------+---------+ + + + | 06/23/ | Office | Cardiology | Monserrat Renner, | | 2019 | Visit | | MD Bandar ALMODOVAR | | | | | | [place], [place] | | | | | | [id number] | | | | | | | | +--------+---------+ + + + documented as of this encounter Visit Diagnoses + + | Diagnosis | + + | Chronic diastolic heart failure (HCC) - Primary Chronic diastolic heart failure | + + | Paroxysmal atrial fibrillation (HCC) Atrial fibrillation | + + documented in this encounter
--- OUTSIDE RECORDS SUMMARY | ~2020-01-09 | XMS | Encounter Summary ---
Demographics + + + | Address | [address] | | | [place] [address] | + + + | Home Phone | | + + + | Preferred Language | Unknown | + + + | Marital Status | Unknown | + + + | Buddhist Affiliation | Unknown | + + + | Race | Unknown | + + + | Ethnic Group | Unknown | + + + Author + + + | Author | [facility] | | | and [place] | + + + | Organization | [facility] | | | and [place] | + + + | Address | Unknown | + + + | Phone | Unavailable | + + + Support + + + + + | Name | Relationship | Address | Phone | + + + + + | Lobito Romero | LESA | [phone] | | | | | [place], [place] | | | | | [address] | | + + + + + | Monie Conrad | ECON | Unknown | | | [place] | | | | + + + + + | Peggy Devi | LESA | Unknown | | + + + + + Care Team Providers + +------+ + | Care Plastic Products Sales Representative Name | Role | Phone | + +------+ + | Brooklyn Helms MD | PCP | | + +------+ + Reason for Visit + + + | Reason | Comments | + + + | Follow-up | 6 mo f/u | + + + Encounter Details +--------+---------+ + + + | Date | Type | Department | Care Team | Description | +--------+---------+ + + + | 04/09/ | Office | [facility] | Monserrat Perez, | Chronic diastolic | | 2019 | Visit | CARDIOLOGY DEON | MD Bandar ALMODOVAR | heart failure (HCC) | | | | [address] | [place], [place] | (Primary Dx); | | | | [place] [address] | [phone] | Essential | | | | [place] | | hypertension; | | | | [address] | | Paroxysmal atrial | | | | [phone] | | fibrillation (HCC) | +--------+---------+ + + + Social History + +-------+ [...] + + + | Blood Pressure | 112/64 | 04/09/2019 2:56 PM | | | | | PDT | | + + + + + | Pulse | 92 | 04/09/2019 2:56 PM | | | | | PDT | | + + + + + | Temperature | - | - | | + + + + + | Respiratory Rate | - | - | | + + + + + | Oxygen Saturation | 92% | 04/09/2019 2:56 PM | Patient is on 2L of | | | | PDT | O2 | + + + + + | Inhaled Oxygen | - | - | | | Concentration | | | | + + + + + | Weight | 87.5 kg (193 lb) | 04/09/2019 2:56 PM | | | | | PDT | | + + + + + | Height | 154.9 cm (5' 1") | 04/09/2019 2:56 PM | | | | | PDT | | + + + + + | Body Mass Index | 36.47 | 04/09/2019 2:56 PM | | | | | PDT | | + + + + + documented in this encounter Progress Notes Monserrat Perez MD - 04/09/2019 2:45 PM PDTFormatting of this note might be different f rom the original. Date of visit: 04/09/2019 Primary Care Physician: Brooklyn Helms MD CHIEF COMPLAINT: Chief Complaint Patient presents with Follow-up 6 mo f/u HISTORY OF PRESENT ILLNESS: Amanda is 88 y.o. here for follow up visit. Presented with her daughter and granddaughter. Has been at baseline. Feeling overall stable. Denies any recurrent episodes of atrial fib rillation recently. No change in medication. Was evaluated in [facility] in November 2018 for shortness of breath, at that time she had a flu. Discharged home. History of heart failure with preserved systolic function. Continue to be on home O2 at 2 L. Continue to take furosemide 40 mg 2 times a day. No curre nt use of metolazone. Recently was difficult to control her diet especially with the premade meals and the pepper mariama, sausages, beef jerky, canned and pickled vegetables Previously was hospitalized in [facility] in September 2017 secondary to exacerbat ion of chronic obstructive point disease. Was evaluated by Dr. Ibarra in 2013 however did not return for any follow-up since then. At t hat time she has history of hypertension. Since then she was diagnosed with appears to be pa roxysmal atrial fibrillation and she has been on anticoagulation since then. Past medical history, SH, FH, and medications were reviewed in the chart. Medications: Outpatient Encounter Medications as of 04/09/2019 Medication Sig Dispense Refill albuterol (PROAIR HFA) 90 mcg/puff inhaler Inhale 2 puffs into the lungs every 4 (four) hours as needed. calcium-vitamin D (OYSTER SHELL CALCIUM/D) 500 mg-200 units per tablet Take 1 tablet by mouth 2 (two) times daily. [DISCONTINUED] dorzolamide (TRUSOPT) 2% ophthalmic solution Place 1 drop into both eyes 3 (three) times daily. (Patient not taking: Reported on 04/09/2019) furosemide (LASIX) 40 mg tablet Take 1 tablet by mouth 2 (two) times daily. [DISCONTINUED] HYDROcodone-acetaminophen (NORCO) 5-325 mg per tablet Take 1 tablet by m outh every 6 (six) hours as needed. (Patient not taking: Reported on 04/09/2019) [DISCONTINUED] indomethacin (INDOCIN) 50 MG capsule Take 50 mg by mouth 3 (three) times daily as needed. (Patient not taking: Reported on 04/09/2019) [DISCONTINUED] latanoprost (XALATAN) 0.005% ophthalmic solution 1 drop nightly. (Patien t not taking: Reported on 04/09/2019) metoprolol succinate (TOPROL-XL) 25 mg 24 hr tablet Take 1 tablet by mouth daily. 90 ta blet MULTIPLE VITAMINS-MINERALS PO Take 1 tablet by mouth daily. nitroglycerin (NITROSTAT) 0.[address] 0.4 mg under the tongue every 5 (five) minutes as needed. Up to 3 tabs in 15 minutes, if no relief: call 911 or go to ER [DISCONTINUED] omeprazole (PRILOSEC) 20 mg capsule Take 20 mg by mouth 2 (two) times da tori. (Patient not taking: Reported on 04/09/2019) potassium chloride (KLOR-CON) 10 MEQ ER tablet Take 10 mEq by mouth 2 (two) times daily with meals. potassium citrate (UROCIT-K) 10 mEq SR tablet Take 10 mEq by mouth 2 (two) times daily. predniSONE (DELTASONE) 5 mg tablet Take 5 mg by mouth daily with breakfast. Respiratory Therapy Supplies (NEBULIZER COMPRESSOR) KIT by Does not apply route as need ed. rivaroxaban (XARELTO) 20 mg tablet Take 20 mg by mouth daily with dinner. spironolactone (ALDACTONE) 25 mg tablet Take 25 mg by mouth 2 (two) times daily. No facility-administered encounter medications on file as of 04/09/2019. Allergies Allergies Allergen Reactions Sulfur Headache REVIEW OF SYSTEMS: Constitutional: Positive for mild fatigue. No fever, chills, and rigors. No report of weig ht change. HEENT: Negative for nosebleeds, ear discharge, nasal congestion or soar throat. Eyes: Negative for visual disturbance, redness, or secretion. Respiratory: On chronic O2. Shortness of breath. Cardiovascular: As HPI Gastrointestinal: Negative for nausea, vomiting, diarrhea, abdominal pain and blood in stoo l. Genitourinary: Negative for dysuria or hematuria. Musculoskeletal: Arthritic chronic pain. Skin: Negative for rash. Neurological: Negative for dizziness. No numbness. No recent falls. No slurred speech. Hematological: No significant bruising. Psychiatric/Behavioral: No depression or anxiety. PHYSICAL EXAM Vital Signs: BP 112/64 | Pulse 92 | Ht 1.549 m (5' 1") | Wt 87.5 kg (193 lb) | SpO2 92% Comment: Pat alberto is on 2L of O2 | BMI 36.47 kg/m GENERAL APPEARANCE: Alert, oriented, cooperative, no distress, appears stated age. HEENT: Extraocular movements were intact. No jaundice. Pupiles round and reactive. NECK: No JVD, lymphadenopathy. Carotid upstrokes normal. No carotid bruit heard. CARDIAC: Regular rhythm and rate. There is normal S1 and S2. No galop. No murmur. CHEST: Normal bilateral symmetrical chest excursion.ackles or wheezing. No evidence of dull ness. ABDOMEN: Soft.No tenderness or guarding. No palpable organs. Active bowel sounds. EXTREMITIES: No lower extremities edema, cyanosis or clubbing. Edema only at the ankles. NEURO: Alert and oriented times three with no focal deficit. Cranial nerves are grossly no rmal. SKIN: Warm and dry. No rash. Psych: Normal affect and mood. DATA 11/04/2018 WBC 6.5, hemoglobin 12.2, platelets 140, sodium 137, potassium 3.9, chloride 97, bicarb 29, BUN 19, creatinine 0.92, ALT 16, AST 13, alk phos 55. BNP 20. No results found for: NA, K, CO2, BUN, LABCREA, CALCIUM, MG No results found for: WBC, HGB, HCT, MCV, PLT No results found for: CHOL, TRIG, HDL, LDL, GLUF, TSH EK10/16/2018 Ordered and reviewed by myself showed normal sinus rhythm, poor R-wave progression possible septal old infarct. No change from previous EKG. 09/20/2017 From [facility] showed normal sinus rhythm, left axis deviation, R wave progressi on, nonspecific intraventricular conduction delay. Last Echo: 09/21/2017 DDS, normal LV size and hyperdynamic systolic function EF >70%. Normal RV size and function . Mildly calcified aortic valve with mild increased gradient. Last stress test: 2013 Reported with no clear reversible defect to suggest ischemia Last cath: Carotid US: AAA screening: Lower extremity US: OTHERS: ASSESSMENT: Patient is 88 y.o. with 1. Chronic decompensated diastolic heart failure appears euvolemic. 2. Chronic respiratory failure secondary to chronic obstructive pulmonary disease on home O 2. 3. Lower extremity edema on the right however resolved on the left.. 4. Obesity. 5. Hypertension currently blood pressures controlled. 6. Paroxysmal atrial fibrillation. CHADSVASc score of 4. On anticoagulation. Recommendations: Patient relatively has been stable lately. Appears euvolemic. Decision making and gauging her symptoms will be challenging in the view of advanced chroni c obstructive pulmonary disease requiring home O2 and heart failure with preserved ejection fraction. We will continue with furosemide 40 mg twice daily. Spironolactone 25 mg p.o. daily. Metoprolol Sinay 25 mg p.o. daily can use an extra pill for recurrent palpitations/atrial f ibrillation. Readdressed with the patient refraining from any canned SALTED food. Will call with any change in symptoms. We will follow-up with the patient 6 months or earlier if needed. *This report has been prepared using a voice recognition system. The report was reviewed fo r accuracy, however, sound-alike word errors, addition and/or deletions may occur. If there is any question about this report please contact me. Monserrat Perez MD, MPH P M PDTdocumented in this encounter Plan of Treatment +--------+---------+ + + + | Date | Type | Specialty | Care Team | Description | +--------+---------+ + + + | 06/23/ | Office | Cardiology | Monserrat Perez, | | | 2019 | Visit | | MD Bandar ALMODOVAR | | | | | | [place], [place] | | | | | | [address] | | | | | | | | +--------+---------+ + + + documented as of this encounter Visit Diagnoses + + | Diagnosis | + + | Chronic diastolic heart failure (HCC) - Primary Chronic diastolic heart failure | + + | Essential hypertension Unspecified essential hypertension | + + | Paroxysmal atrial fibrillation (HCC) Atrial fibrillation | + + documented in this encounter
--- OUTSIDE RECORDS SUMMARY | ~2020-01-09 | XMS | Encounter Summary ---
Demographics + + + | Address | [address] | | | [place] [address] | + + + | Home Phone | | + + + | Preferred Language | Unknown | + + + | Marital Status | Unknown | + + + | Bahai Affiliation | Unknown | + + + | Race | Unknown | + + + | Ethnic Group | Unknown | + + + Author + + + | Author | [facility] | | | and [place] | + + + | Organization | [facility] | | | and [place] | + + + | Address | Unknown | + + + | Phone | Unavailable | + + + Support + + + + + | Name | Relationship | Address | Phone | + + + + + | Lobito Romero | LESA | [phone] | | | | | [place], [place] | | | | | [address] | | + + + + + | Monie Conrad | ECON | Unknown | | | [place] | | | | + + + + + | Peggy Devi | LESA | Unknown | | + + + + + Care Team Providers + +------+ + | Care Receiving Associate Store Name | Role | Phone | + +------+ + | Brooklyn Helms MD | PCP | | + +------+ + Encounter Details +--------+ + + + + | Date | Type | Department | Care Team | Description | +--------+ + + + + | 08/08/ | Orders Only | [facility] | Conversion | | | 2014 | | CONVERSION DEP [address] | Transaction, | | | | | [address] | Provider Unknown | | | | | [place] | [phone] | | | | | [address] | | | | | | [phone] | | | +--------+ + + + [...] [place] | | | | | | [address] | | | | | | | | +--------+---------+ + + + documented as of this encounter Visit Diagnoses Not on filedocumented in this encounter"
--- OUTSIDE RECORDS SUMMARY | ~2020-01-09 | XMS | Encounter Summary ---
Demographics + + + | Address | [address] | | | [place] [address] | + + + | Home Phone | | + + + | Preferred Language | Unknown | + + + | Marital Status | Unknown | + + + | Gnosticist Affiliation | Unknown | + + + | Race | Unknown | + + + | Ethnic Group | Unknown | + + + Author + + + | Author | [facility] | | | and [place] | + + + | Organization | [facility] | | | and [place] | + + + | Address | Unknown | + + + | Phone | Unavailable | + + + Support + + + + + | Name | Relationship | Address | Phone | + + + + + | Lobito Romero | LESA | [phone] | | | | | [place], [place] | | | | | [address] | | + + + + + | Monie Conrad | ECON | Unknown | | | [place] | | | | + + + + + | Peggy Devi | LESA | Unknown | | + + + + + Care Team Providers + +------+ + | Care Special Police Officer Name | Role | Phone | + [...] Provider Unknown | | | | | [facility] [place] | [phone] | | | | | [address] | | | | | | [phone] | | | +--------+ + + + [...] [place] | | | | | | [address] | | | | | | | | +--------+---------+ + + + documented as of this encounter Visit Diagnoses Not on filedocumented in this encounter"
--- OUTSIDE RECORDS SUMMARY | ~2020-01-09 | XMS | Encounter Summary ---
Demographics + + + | Address | [address] | | | [place] [address] | + + + | Home Phone | | + + + | Preferred Language | Unknown | + + + | Marital Status | Unknown | + + + | Tenriism Affiliation | Unknown | + + + | Race | Unknown | + + + | Ethnic Group | Unknown | + + + Author + + + | Author | [facility] | | | and [place] | + + + | Organization | [facility] | | | and [place] | + + + | Address | Unknown | + + + | Phone | Unavailable | + + + Support + + + + + | Name | Relationship | Address | Phone | + + + + + | Lobito Romero | LESA | [address] | | | | | [place], [place] | | | | | [address] | | + + + + + | Monie Conard | ECON | Unknown | | | [place] | | | | + + + + + | Peggy Devi | LESA | Unknown | | + + + + + Care Team Providers + +------+ + | Care Corporate Real Estate Manager Name | Role | Phone | + +------+ + | Brooklyn Helms MD | PCP | | + +------+ + Encounter Details +--------+ + + + + | Date | Type | Department | Care Team | Description | +--------+ + + + + | 08/25/ | Orders Only | [facility] | Adam Ibarra | | | 2014 | | CONVERSION | MD Leticia [address] | | | | | [address] | Rahul Crespo | | | | | [address], [place] | [place] [address] | | | | | [address] | [phone] | | | | | [phone] | | | +--------+ + + + [...] | | 2019 | Visit | | [address] | | | | | | [place] | | | | | | [address] | | | | | | | | +--------+---------+ + + + documented as of this encounter Procedures + +--------+ + + + | Procedure Name | Priori | Date/Time | Associated Diagnosis | Comments | | | ty | | | | + +--------+ + + + | NM NUCLEAR STRESS | Routin | 08/25/2013 | | Results for this | | TEST (PHARMACOLOGIC | e | 5:12 PM | | procedure are in the | | - VASODILATOR) | | PST | | results section. | + +--------+ + + + documented in this encounter Results NM Nuclear Stress Test (Vasodilator) (08/25/2013 5:12 PM PST) + + | Specimen | + + | | + + + + + | Impressions | Performed At | + + + | 1. Probably normal study. Suggestive of breast attenuation, no | | | evidence of ischemia. LVEF 72 % 2. Stress ECG: Negative for | | | Lexiscan induced ischemia. 3. No arrhythmias detected. 4. No | | | Lexiscan induced chest pain. 5. No previous test for comparison. | | | | | + + + + + + | Narrative | Performed At | + + + | [facility] Nuclear Lexiscan Stress Test History: | | | 83 Year old female being evaluated for CHF. Rest Data: HR: 63 | | | bpm BP: 141 /107 Baseline ECG: Normal sinus rhythm. Stress | | | Data: HR: 86 bpm BP: 141/107 Reaction to Lexiscan: lightheaded, | | | shortness of breath Stress ECG: Negative for Lexiscan induced | | | ischemia. Arrhythmias: none Myocardial Perfusion: Images are | | | adequate for interpretation. mild perfusion defect apically, on | | | the Rest and Stress images. SSS: 3 SRS: 5 SDS: 2 TID: 1.06 Gated | | | Images: Rest EDV: 62 mL Rest ESV: 18 mL Rest EF: 71 % Stress EDV: 64 | | | mL Stress ESV: 18 mL Stress EF: 72 % No evidence of regional wall | | | motion abnormality Procedure: 9.3 mCi of 99m Tc Myoview was given | | | intravenously for rest images. 31 mCi of 99m Tc Myoview was given | | | intravenously for stress images at :35. Effective Dose | | | Equivalent 13.75 mSv The patient received 0.4mg Lexiscan | | | intravenously. | | + + + + -------+ | Procedure Note | + -------+ | Rodrigo, Rad Conversion - 03/27/2019 9[facility] PM [facility] | Lexiscan Stress Test History:83 Year old female being evaluated for CHF. Rest Data:HR: | | 63 bpm BP: 141 /107Baseline ECG: Normal sinus rhythm. Stress Data:HR: 86 bpm BP: | | 141/107Reaction to Lexiscan: lightheaded, shortness of breathStress ECG: Negative for | | Lexiscan induced ischemia.Arrhythmias: none Myocardial Perfusion:Images are adequate for | | interpretation. mild perfusion defect apically, on the Rest and Stress images.SSS: 3 | | SRS: 5 SDS: 2 TID: 1.06 Gated Images:Rest EDV: 62 mL Rest ESV: 18 mL Rest EF: 71 %Stress | | EDV: 64 mL Stress ESV: 18 mL Stress EF: 72 %No evidence of regional wall motion | | abnormality Procedure:9.3 mCi of 99m Tc Myoview was given intravenously for rest | | images.31 mCi of 99m Tc Myoview was given intravenously for stress images at | | :35.Effective Dose Equivalent 13.75 mSvThe patient received 0.4mg Lexiscan | | intravenously. IMPRESSION: 1. Probably normal study. Suggestive of breast | | attenuation, no evidence of ischemia. LVEF 72 %2. Stress ECG: Negative for Lexiscan | | induced ischemia.3. No arrhythmias detected.4. No Lexiscan induced chest pain.5. No | | previous test for comparison. | | 5:43 PM | |Myocardial Perfusion: | |Images are adequate for interpretation. | | | |mild perfusion defect apically, on the Rest and Stress images. | |SSS: 3 SRS: 5 SDS: 2 TID: 1.06 | | | |Gated Images: | |Rest EDV: 62 mL Rest ESV: 18 mL Rest EF: 71 % | |Stress EDV: 64 mL Stress ESV: 18 mL Stress EF: 72 % | |No evidence of regional wall motion abnormality | | | |Procedure: | |9.3 mCi of 99m Tc Myoview was given intravenously for rest images. | |31 mCi of 99m Tc Myoview was given intravenously for stress images at :35. | |Effective Dose Equivalent 13.75 mSv | |The patient received 0.4mg Lexiscan intravenously. | | | | | |IMPRESSION: | |1. Probably normal study. Suggestive of breast attenuation, no evidence of ischemia. LVE F 72 % | |2. Stress ECG: Negative for Lexiscan induced ischemia. | |3. No arrhythmias detected. | |4. No Lexiscan induced chest pain. | |5. No previous test for comparison. | | | | | + -------+ documented in this encounter Visit Diagnoses Not on filedocumented in this encounter"
--- OUTSIDE RECORDS SUMMARY | ~2020-01-09 | XMS | Encounter Summary ---
Demographics + + + | Address | [address] | | | [place] [address] | + + + | Home Phone | | + + + | Preferred Language | Unknown | + + + | Marital Status | Unknown | + + + | Sabianist Affiliation | Unknown | + + + | Race | Unknown | + + + | Ethnic Group | Unknown | + + + Author + + + | Author | [facility] | | | and [place] | + + + | Organization | [facility] | | | and [place] | + + + | Address | Unknown | + + + | Phone | Unavailable | + + + Support + + + + + | Name | Relationship | Address | Phone | + + + + + | Lobito Romero | LESA | [address] | | | | | [place], [place] | | | | | [address] | | + + + + + | Monie Conrad | ECON | Unknown | | | [place] | | | | + + + + + | Peggy Devi | LESA | Unknown | | + + + + + Care Team Providers + +------+ + | Care Label Fuser Tender Name | Role | Phone | + [...] Provider Unknown | | | | | [facility] | [phone] | | | | | [address] | | | | | | [phone] | | | +--------+ + + + [...] [place] | | | | | | [address] | | | | | | | | +--------+---------+ + + + documented as of this encounter Visit Diagnoses Not on filedocumented in this encounter"
--- OUTSIDE RECORDS SUMMARY | ~2020-01-09 | XMS | Encounter Summary ---
Demographics + + + | Address | [address] | | | [place] [address] | + + + | Home Phone | | + + + | Preferred Language | Unknown | + + + | Marital Status | Unknown | + + + | Restorationist Affiliation | Unknown | + + + | Race | Unknown | + + + | Ethnic Group | Unknown | + + + Author + + + | Author | [facility] | | | and Morganana | + + + | Organization | [facility] | | | and [place] | + + + | Address | Unknown | + + + | Phone | Unavailable | + + + Support + + + + + | Name | Relationship | Address | Phone | + + + + + | Lobito Romero | LESA | [address] | | | | | [place], [place] | | | | | [address] | | + + + + + | Monie Conrad | ECON | Unknown | | | [place] | | | | + + + + + | Peggy Devi | LESA | Unknown | | + + + + + Care Team Providers + +------+ + | Care Hearth Feeder Name | Role | Phone | + +------+ + | Brooklyn Helms MD | PCP | | + +------+ + Encounter Details +--------+ + + + + | Date | Type | Department | Care Team | Description | +--------+ + + + + | 03/21/ | Orders Only | [facility] | Monserrat Renner, | Paroxysmal atrial | | 2019 | | CARDIOLOGY [facility] | [address] | fibrillation (HCC); | | | | [address] [facility] | [place], [place] | Paroxysmal atrial | | | | [address] | [address] | fibrillation (HCC); | | | | [place] | | Chronic diastolic | | | | [address] | | heart failure (HCC); | | | | [phone] | | Chronic respiratory | | | | | | failure with | | | | | | hypoxia (HCC) | +--------+ + + + + Social [...] | | | | | [place], [place] | | | | | | [address] | | | | | | | | +--------+---------+ + + + + +------+--------+ + + | Name | Type | Priori | Associated Diagnoses | Order Schedule | | | | ty | | | + +------+--------+ + + | Comprehensive | Lab | Routin | Paroxysmal atrial | Expected: | | Metabolic Panel | | e | fibrillation (HCC) | 10/16/2018, Expires: | | | | | Paroxysmal atrial | 10/17/2019 | | | | | fibrillation (HCC) | | | | | | Chronic diastolic | | | | | | heart failure (HCC) | | | | | | Chronic respiratory | | | | | | failure with | | | | | | hypoxia (HCC) | | + +------+--------+ + + | CBC with Manual | Lab | Routin | Paroxysmal atrial | Expected: | | Differential | | e | fibrillation (HCC) | 10/16/2018, Expires: | | | | | Paroxysmal atrial | 10/17/2019 | | | | | fibrillation (HCC) | | | | | | Chronic diastolic | | | | | | heart failure (HCC) | | | | | | Chronic respiratory | | | | | | failure with | | | | | | hypoxia (HCC) | | + +------+--------+ + + documented as of this encounter Visit Diagnoses + + | Diagnosis | + + | Paroxysmal atrial fibrillation (HCC) Atrial fibrillation | + + | Chronic diastolic heart failure (HCC) Chronic diastolic heart failure | + + | Chronic respiratory failure with hypoxia (HCC) Chronic respiratory failure | + + documented in this encounter"
--- OUTSIDE RECORDS SUMMARY | ~2020-01-09 | XMS | Encounter Summary ---
Demographics + + + | Address | [address] | | | [place] [address] | + + + | Home Phone | | + + + | Preferred Language | Unknown | + + + | Marital Status | Unknown | + + + | Evangelical Affiliation | Unknown | + + + | Race | Unknown | + + + | Ethnic Group | Unknown | + + + Author + + + | Author | [facility] | | | and [place] | + + + | Organization | [facility] | | | and [place] | + + + | Address | Unknown | + + + | Phone | Unavailable | + + + Support + + + + + | Name | Relationship | Address | Phone | + + + + + | Lobito Romero | LESA | [address] | | | | | [place], [place] | | | | | [address] | | + + + + + | Monie Conrad | ECON | Unknown | | | [place] | | | | + + + + + | Peggy Devi | LESA | Unknown | | + + + + + Care Team Providers + +------+ + | Care Cost Accounting Manager Name | Role | Phone | [...] + + | 04/09/ | Office | [facility] | Monserrat Perez, | Chronic diastolic | | 2019 | Visit | CARDIOLOGY DEON | MD Bandar ALMODOVAR | heart failure (HCC) | | | | [address] | [place], [place] | (Primary Dx); | | | | [place] [address] | [id number] | Essential | | | | [place] | | hypertension; | | | | [address] | | Paroxysmal atrial | | | | [phone] | | fibrillation (HCC) | +--------+---------+ + [...] No change in medication. Was evaluated in [facility] in November 2018 for shortness of breath, [...] and pickled vegetables Previously was hospitalized in [facility] in September 2017 secondary to [...] No change from previous EKG. 09/20/2017 From [facility] showed normal sinus rhythm, left [...] | | | | | [place], [place] | | | | | | [address] | | | | | | | [...]
--- OUTSIDE RECORDS SUMMARY | ~2020-01-09 | XMS | Clinical Summary ---
Demographics + + + | Address | [address] | | | [place] [address] | + + + | Home Phone | | + + + | Preferred Language | Unknown | + + + | Marital Status | Unknown | + + + | Temple Affiliation | Unknown | + + + | Race | Unknown | + + + | Ethnic Group | Unknown | + + + Author + + + | Author | [facility] | | | and Morganana | + + + | Organization | [facility] | | | and [place] | + + + | Address | Unknown | + + + | Phone | Unavailable | + + + Support + + + + + | Name | Relationship | Address | Phone | + + + + + | Lobito Romero | LESA | [address] | | | | | [place], [place] | | | | | [address] | | + + + + + | Monie Conrad | ECON | Unknown | | | [place] | | | | + + + + + | Peggy Devi | LESA | Unknown | | + + + + + Care Team Providers + +------+ + | Care Entry Level Lab Technician Name | Role | Phone | + [...] fibrillation | 08/08/2013 | + + + Encounters +--------+ + + + + | Date | Type | Specialty | Care Team | Description | +--------+ + + + + | 12/02/ | Virtual | Cardiology | Monserrat Renner, | Chronic diastolic | | 2020 | Office | | MD | heart failure (HCC) | | | Visit | | | (Primary Dx); | | | | | | Paroxysmal atrial | | | | | | fibrillation (HCC) | +--------+ + + + + from Last 3 Months Family History + + +------+ + | [...] | | | | | [place] | | | | | | [address] | | | | | | | [...] Vaccine: Influenza | | | | | (Season Ended) | 0 | | | + + [...] +--------+ +---------+--------+ | MEDICARE | MEDICA | [id number] | 04/06/19 | [phone] | | Medica | | | RE | | 95-Pre | 5 | | re | | | PART A | | sent | | | | | | AND B | | | | | | + +--------+ +--------+ +---------+--------+ | REGENCE | REGENC | [id number] | 08/06/19 | [phone] | | Indemn | | | [place] | 1 | 17-Pre | 8 | | ity | | | MDCR | | sent | | | | | | SUPPL | | | | | | + [...] Person | Self | [birth year] | [address] | | | al/Fam | | 1930 | [phone] | [address] [place], [place] | | | tori | | | 2 (Home) | [address] | + +--------+ +--------+ + + Advance Directives + + + + + | Type | Date Recorded | Patient | Explanation | | | | Public Health Educator | | + + + + + | Power of | | | | | Fiberglass Roving Winder | | | | + + + + + | Advance | | | | | Directive | | | | + + + + +
--- OUTSIDE RECORDS SUMMARY | ~2020-01-09 | XMS | Encounter Summary ---
Demographics + + + | Address | [address] | | | [place] [address] | + + + | Home Phone | | + + + | Preferred Language | Unknown | + + + | Marital Status | Unknown | + + + | Congregational Affiliation | Unknown | + + + | Race | Unknown | + + + | Ethnic Group | Unknown | + + + Author + + + | Author | [facility] | | | and [place] | + + + | Organization | [facility] | | | and [place] | + + + | Address | Unknown | + + + | Phone | Unavailable | + + + Support + + + + + | Name | Relationship | Address | Phone | + + + + + | Lobito Romero | LESA | [address] | | | | | [place], [place] | | | | | [address] | | + + + + + | Monie Conrad | ECON | Unknown | | | [place] | | | | + + + + + | Peggy Devi | LESA | Unknown | | + + + + + Care Team Providers + +------+ + | Care Air Force Pilot Name | Role | Phone | + [...] Unknown | | | | | [facility] | [phone] | | | | | [address] | (Fax) | | | | | [phone] | | | +--------+ + + + [...] [place] | | | | | | [address] | | | | | | | | +--------+---------+ + + + documented as of this encounter Visit Diagnoses Not on filedocumented in this encounter"
--- OUTSIDE RECORDS SUMMARY | ~2020-01-09 | XMS | Encounter Summary ---
Demographics + + + | Address | [address] | | | [place] [address] | + + + | Home Phone | | + + + | Preferred Language | Unknown | + + + | Marital Status | Unknown | + + + | Advent Affiliation | Unknown | + + + | Race | Unknown | + + + | Ethnic Group | Unknown | + + + Author + + + | Author | [facility] | | | and [place] | + + + | Organization | [facility] | | | and [place] | + + + | Address | Unknown | + + + | Phone | Unavailable | + + + Support + + + + + | Name | Relationship | Address | Phone | + + + + + | Lobito Romero | LESA | [address] | | | | | [place], [place] | | | | | [address] | | + + + + + | Monie Conrad | ECON | Unknown | | | [place] | | | | + + + + + | Peggy Devi | LESA | Unknown | | + + + + + Care Team Providers + +------+ + | Care Single Corner Cutter Name | Role | Phone | + +------+ + | Brooklyn Helms MD | PCP | | + +------+ + Encounter Details +--------+ + + + + | Date | Type | Department | Care Team | Description | +--------+ + + + + | 03/21/ | Orders Only | [facility] | Monserrat Renner, | Paroxysmal atrial | | 2019 | | CARDIOLOGY DEON | [address] | fibrillation (HCC); | | | | [address] [facility] | [place], [place] | Paroxysmal atrial | | | | [address] | [address] | fibrillation (HCC); | | | | [place] | | Chronic diastolic | | | | [address] | | heart failure (HCC); | | | | [phone] | | Chronic respiratory | | | [...] | | | | | [place], [place] | | | | | | [address] | | | | | | | [...]
--- OUTSIDE RECORDS SUMMARY | ~2020-01-09 | XMS | Encounter Summary ---
Demographics + + + | Address | [address] | | | [place] [address] | + + + | Home Phone | | + + + | Preferred Language | Unknown | + + + | Marital Status | Unknown | + + + | Hoahaoism Affiliation | Unknown | + + + | Race | Unknown | + + + | Ethnic Group | Unknown | + + + Author + + + | Author | [facility] | | | and [place] | + + + | Organization | [facility] | | | and [place] | + + + | Address | Unknown | + + + | Phone | Unavailable | + + + Support + + + + + | Name | Relationship | Address | Phone | + + + + + | Lobito Romero | LESA | [address] | | | | | [place], [place] | | | | | [address] | | + + + + + | Monei Conrad | ECON | Unknown | | | [place] | | | | + + + + + | Peggy Devi | LESA | Unknown | | + + + + + Care Team Providers + +------+ + | Care Professional Skateboarder Name | Role | Phone | + [...] Provider Unknown | | | | | [place] | [phone] | | | | | [address] | | | | | | [phone] | | | +--------+ + + + [...] [place] | | | | | | [address] | | | | | | | | +--------+---------+ + + + documented as of this encounter Visit Diagnoses Not on filedocumented in this encounter"
--- OUTSIDE RECORDS SUMMARY | ~2020-01-09 | XMS | Encounter Summary ---
Demographics + + + | Address | [address] | | | [place] [address] | + + + | Home Phone | | + + + | Preferred Language | Unknown | + + + | Marital Status | Unknown | + + + | Uatsdin Affiliation | Unknown | + + + | Race | Unknown | + + + | Ethnic Group | Unknown | + + + Author + + + | Author | [facility] | | | and [place] | + + + | Organization | [facility] | | | and [place] | + + + | Address | Unknown | + + + | Phone | Unavailable | + + + Support + + + + + | Name | Relationship | Address | Phone | + + + + + | Lobito Romero | LESA | [address] | | | | | [place], [place] | | | | | [address] | | + + + + + | Monie Conrad | ECON | Unknown | | | [place] | | | | + + + + + | Peggy Devi | LESA | Unknown | | + + + + + Care Team Providers + +------+ + | Care Highway Technician Name | Role | Phone | [...] | | | | [address] | [place], [place] | | | | | [place], [place] | [address] | | | | | [address] | | | | | | [phone] | | | +--------+ + + + [...] | | | | | [place] | | | | | | [address] | | | | | | | [...] mmHg TR Vmax: 2.57 m/s Director Of District Office: | | | Authenticated by: Monserrat [facility] Report Date/Time: 09-21-2017 | | | 13:4:10 | | + + + + + | Procedure Note | + + | Harlan Wallace Conversion - 03/27/2019 3:56 PM PDT Patient Name: Tin Romero of | | : 1930 Performing Physician: Monserrat | | Prudenceelmore INDICATIONS------ | | -----CHF, A-fib, SOB, Edema [...] cmLVIDd: 4.83 cmLVPWd: 0.88 cmLVOT Area: 3.37 fq2RTQC Diam: 2.07 cm%FS: 29.10 | | %EF(Teich): [...] (A-L): 15.14 ml/m2LAAs A2C: | | 12.79 yv2VETSH A-L A2C: 25.65 mlLALs A2C: 5.41 cmLAAs A4C: 14.08 pq7WOCKE A-L A4C: | | 32.16 mlLALs A4C: 5.23 cmRAAs: 18.88 kd1AXEXX A-L: 62.79 mlRAESV MOD: 59.55 | | mlRALs: 4.82 cmTAPSE: 2.35 cmAV maxP.72 mmHgAV meanP.16 mmHgAV Vmax: | | 1.91 m/Julius Vmean: 1.31 m/Julius VTI: 40.90 cmAVA Vmax: 1.85 cm2AVA (VTI): 1.85 | | tk0LUDV Vmax: 0.00 cm2/m2AVAI (VTI): 0.00 cm2/m2LVOT maxP.43 mmHgLVOT meanPG: | | 2.50 mmHgLVSI Dopp: 39.26 ml/m2LVSV Dopp: 75.78 mlLVOT Vmax: 1.05 m/sLVOT Vmean: | | 0.74 m/sLVOT VTI: 22.43 cmMV A Jayden: 1.04 m/sMV DecT: 271.59 msMV E Jayden: 0.86 | | m/sMV E/A Ratio: 0.82MV PHT: 78.76 msMVA By PHT: 2.79 vo9Frmqwb e': 0.05 | | m/sSeptal E/e': 14.66Lateral e': 0.04 m/sLateral E/e': 17.85RAP: 5 mmHgRVSP: | | 31.54 mmHgTR maxP.54 mmHgTR Vmax: 2.57 m/s Director Of District Office:Authenticated by: | | Monserrat [facility] Date/Time: 09-21-2017 13:4:10 IMPRESSION: 1. This was [...] 2.57 m/s | | | |Director Of District Office: | |Authenticated by: Liseleatha García | |Report [...]
--- OUTSIDE RECORDS SUMMARY | ~2020-01-09 | XMS | Encounter Summary ---
Demographics + + + | Address | [address] | | | [place] [address] | + + + | Home Phone [...] + + + | Author | [facility] | | | and [place] | + + + | Organization | [facility] | | | and [place] | + + + | Address | Unknown | + + + | Phone | Unavailable | + + + Support + + + + + | Name | Relationship | Address | Phone | + + + + + | Lobito Romero | LESA | [address] | | | | | [place], [place] | | | | | [address] | | + + + + + | Monie Conrad | ECON | Unknown | | | [place] | | | | + + + + + | Peggy Devi | LESA | Unknown | | + + + + + Care Team Providers + +------+ + | Care Button Tufting Machine Operator Name | Role | Phone | [...] Rahul Crespo | | | | | [address], [place] | [place] [address] | | | | | [address] | [phone] | | | | | [phone] | | | +--------+ + + + [...] [place] | | | | | | [address] | | | | | | | [...] Performed At | + + + | [facility] Nuclear Lexiscan Stress Test History: | [...] Rodrigo, Rad Conversion - 03/27/2019 9[facility] [facility] | | Lexiscan Stress Test History:83 Year [...]
--- OUTSIDE RECORDS SUMMARY | ~2020-01-09 | XMS | Encounter Summary ---
Demographics + + + | Address | [address] | | | [place] [address] | + + + | Home Phone [...] Author + + + | Author | [facility] | | | and [place] | + + + | Organization | [facility] | | | and [place] | + + + | Address | Unknown | + + + | Phone | Unavailable | + + + Support + + + + + | Name | Relationship | Address | Phone | + + + + + | Lobito Romero | LESA | [address] | | | | | [place], [place] | | | | | [address] | | + + + + + | Monie Conrad | ECON | Unknown | | | [place] | | | | + + + + + | Peggy Devi | LESA | Unknown | | + + + + + Care Team Providers + +------+ + | Care Ball Points Inspector Name | Role | Phone | + [...] Provider Unknown | | | | | [place] | [phone] | | | | | [address] | | | | | | [phone] | | | +--------+ + + + [...] [place] | | | | | | [address] | | | | | | | | +--------+---------+ + + + documented as of this encounter Visit Diagnoses Not on filedocumented in this encounter"
--- OUTSIDE RECORDS SUMMARY | ~2020-01-09 | XMS | Encounter Summary ---
Demographics + + + | Address | [address] | | | [place] [address] | + + + | Home Phone | | + + + | Preferred Language | Unknown | + + + | Marital Status | Unknown | + + + | Yarsani Affiliation | Unknown | + + + | Race | Unknown | + + + | Ethnic Group | Unknown | + + + Author + + + | Author | [facility] | | | and [place] | + + + | Organization | [facility] | | | and [place] | + + + | Address | Unknown | + + + | Phone | Unavailable | + + + Support + + + + + | Name | Relationship | Address | Phone | + + + + + | Lobito Romero | LESA | [id number] | | | | | [place], [place] | | | | | [address] | | + + + + + | Monie Conrad | ECON | Unknown | | | [place] | | | | + + + + + | Peggy Devi | LESA | Unknown | | + + + + + Care Team Providers + +------+ + | Care Stitchdown Toe Former Name | Role | Phone | + [...] Provider Unknown | | | | | [facility] [place] | [phone] | | | | | [address] | | | | | | [phone] | | | +--------+ + + + [...] [place] | | | | | | [address] | | | | | | | | +--------+---------+ + + + documented as of this encounter Visit Diagnoses Not on filedocumented in this encounter"
--- OUTSIDE RECORDS SUMMARY | ~2020-01-09 | XMS | Encounter Summary ---
Demographics + + + | Address | [address] | | | [place] [address] | + + + | Home Phone | | + + + | Preferred Language | Unknown | + + + | Marital Status | Unknown | + + + | Cheondoism Affiliation | Unknown | + + + | Race | Unknown | + + + | Ethnic Group | Unknown | + + + Author + + + | Author | [facility] | | | and [place] | + + + | Organization | [facility] | | | and [place] | + + + | Address | Unknown | + + + | Phone | Unavailable | + + + Support + + + + + | Name | Relationship | Address | Phone | + + + + + | Lobito Romero | LESA | [id number] | | | | | [place], [place] | | | | | [address] | | + + + + + | Monie Conrad | ECON | Unknown | | | [place] | | | | + + + + + | Peggy Devi | LESA | Unknown | | + + + + + Care Team Providers + +------+ + | Care Spinner Tender Name | Role | Phone | + +------+ + | Brooklyn eHlms MD | PCP | | + +------+ [...] Provider Unknown | | | | | [place] | [phone] | | | | | [address] | | | | | | [phone] | | | +--------+ + + + [...] [place] | | | | | | [address] | | | | | | | | +--------+---------+ + + + documented as of this encounter Visit Diagnoses Not on filedocumented in this encounter"
--- OUTSIDE RECORDS SUMMARY | ~2020-01-09 | XMS | Encounter Summary ---
Demographics + + + | Address | [address] | | | [place] [address] | + + + | Home Phone | | + + + | Preferred Language | Unknown | + + + | Marital Status | Unknown | + + + | Samaritan Affiliation | Unknown | + + + | Race | Unknown | + + + | Ethnic Group | Unknown | + + + Author + + + | Author | [facility] | | | and [place] | + + + | Organization | [facility] | | | and [place] | + + + | Address | Unknown | + + + | Phone | Unavailable | + + + Support + + + + + | Name | Relationship | Address | Phone | + + + + + | Lobito Romero | LESA | [id number] | | | | | [place], [place] | | | | | [address] | | + + + + + | Monie Conrad | ECON | Unknown | | | [place] | | | | + + + + + | Peggy Devi | LESA | Unknown | | + + + + + Care Team Providers + +------+ + | Care Tube Machine Operator Helper Name | Role | Phone | + +------+ + | Brooklyn Helsm MD | PCP | | + +------+ + Reason for Visit + + + | Reason | Comments | + + + | Follow-up | | + + + Encounter Details +--------+ + + + + | Date | Type | Department | Care Team | Description | +--------+ + + + + | 12/02/ | Virtual | [facility] | Monserrat Renner, | Chronic diastolic | | 2019 | Office | CARDIOLOGY DEON | MD Bandar ALMODOVAR | heart failure (HCC) | | | Visit | [address] [facility] | [place], [place] | (Primary Dx); | | | | [address] [place] [address] | [phone] | Paroxysmal atrial | | | | [place] | | fibrillation (HCC) | | | | [address] | | | | | | [phone] | | | +--------+ + + + [...] minutes of medical discussion via telephone visit ([id number]) Patient has not been seen in office [...] Currently at home self quarantine in the [facility]. Was evaluated in [facility] in November 2018 for shortness of breath, [...] and pickled vegetables Previously was hospitalized in [facility] in September 2017 secondary to exacerbat [...] No change from previous EKG. 09/20/2017 From [facility] showed normal sinus rhythm, left axis [...] | | | | | | [place], [place] | | | | | | [id number] | | | | | | | | +--------+---------+ + + + documented as of this encounter Visit Diagnoses + + | Diagnosis | + + | Chronic diastolic heart failure (HCC) - Primary Chronic diastolic heart failure | + + | Paroxysmal atrial fibrillation (HCC) Atrial fibrillation | + + documented in this encounter
--- OUTSIDE RECORDS SUMMARY | ~2020-01-09 | XMS | Clinical Summary ---
Demographics + + + | Address | [address] | | | [place] [address] | + + + | Home Phone [...] + | Author | [facility] | | | and [place] | + + + | Organization | [facility] | | | and [place] | + + + | Address | Unknown | + + + | Phone | Unavailable | + + + Support + + + + + | Name | Relationship | Address | Phone | + + + + + | Lobito Romero | LES[place] | [id number] | | | | | [place], [place] | | | | | [address] | | + + + + + | Monie Conrad | ECON | Unknown | | | [place] | | | | + + + + + | Peggy Devi | LESA | Unknown | | + + + + + Care Team Providers + +------+ + | Care Business Liaison Officer Name | Role | Phone | [...] | | | | [place] | | | | | | [address] | | | | | | | [...] +--------+ +---------+--------+ | MEDICARE | MEDICA | [id number] | 04/06/19 | [phone] | | Medica | | | RE | | 95-Pre | 5 | | re | | | PART A | | sent | | | | | | AND B | | | | | | + +--------+ +--------+ +---------+--------+ | [place] | REGENC | [id number] | 08/06/19 | [phone] | | Indemn [...] Person | Self | [birth year] | [id number] | | | al/Fam | | 1930 | [phone] | [address] [place], [place] | | | [place]i | | | [address] (Home) | [address] | + +--------+ +--------+ + + Advance Directives + + + + + | Type | Date Recorded | Patient | Explanation | | | | Import And Export Clerk | | + + + + + | Power of | | | | | Commercial Appraiser | | | | + + + + + | Advance | | | | | Directive | | | | + + + + +
[~2020-01-09 18:20] MED LIST changes: +SPIRONOLACTONE25 MG PO
== END 2020-01-09 20:56 | disposition home or self-care (01) ==
LOC: ED 18:20
DX: S01.01XA Laceration without foreign body of scalp, initial encounter (principal); S16.1XXA Strain of muscle, fascia and tendon at neck level, initial encounter; I48.91 Unspecified atrial fibrillation; I11.0 Hypertensive heart disease with heart failure; I50.9 Heart failure, unspecified; K21.9 Gastro-esophageal reflux disease without esophagitis; Z88.2 Allergy status to sulfonamides; Z79.899 Other long term (current) drug therapy; W18.30XA Fall on same level, unspecified, initial encounter
CPT/HCPCS: 70450; 72125; 99284-25